=== PATIENT | female | born 1950 | race Caucasian/White ===

== ENCOUNTER 2016-10-29 15:56 | Observation (INO) | payer MEDICARE, BC ==
[2016-10-29] MEDS ORDERED: LORazepam 2 MG/ML MDV ONE (16:34)
--- NOTE | 2016-10-29 16:51 | EDM.PDOC ---
ED HPI GENERAL MEDICAL PROBLEM - General Chief Complaint: General Stated Complaint: CARDIAC ISSUES Time Seen by Provider: 10/29/16 16:00 Source of Information: Reports: Patient History Limitations: Reports: No limitations - History of Present Illness INITIAL COMMENTS - FREE TEXT/NARRATIVE: This is a 66yo F here for complaints of dizziness and lightheadedness with chest pressure. Patient states she feels as if she will pass out. Patient has had this in the past but months ago. Patient denies any recent stress or exacerbating factors. Daughter is present in ER. Onset: sudden Onset Date: 10/29/16 Onset Time: 14:30 Duration: Hour(s): Location: Reports: head, chest Severity: moderate Improves with: Reports: None Worsens with: Reports: None Associated Symptoms: Reports: headaches, weakness - Related Data Allergies Allergy/AdvReac Type Severity Reaction Status Date / Time codeine Allergy Nausea Verified 06/29/16 12:35 iodine Allergy Rash Verified 06/29/16 12:35 lisinopril Allergy Cough Verified 06/29/16 12:35 shellfish derived Allergy Rash Verified 06/29/16 12:35 Home Meds: Home Meds Levothyroxine [Synthroid] 100 mcg PO DAILY 09/04/13 [History] Losartan [Cozaar] 100 mg PO DAILY 09/04/13 [History] metFORMIN [Glucophage] 1,000 mg PO BID 09/04/13 [History] Aspirin 162 mg PO DAILY 10/24/15 [History] Cholecalciferol (Vitamin D3) [Vitamin D] 2,000 unit PO DAILY 10/24/15 [History] Cyanocobalamin (Vitamin B-12) [Vitamin B-12] 2,500 mcg SL DAILY 10/24/15 [ History] Hydrochlorothiazide 25 mg PO DAILY 10/24/15 [History] Insulin Aspart [NovoLOG] 10 unit SQ TID 10/24/15 [History] Insulin Glargine,Hum.Rec.Anlog [Lantus Solostar] 11 unit SQ BEDTIME 10/24/15 [ History] Past Medical History HEENT History: Reports: Other (see below) Other HEENT History: Wears glasses. 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: Neurological History: Reports: CVA, TIA Other Neuro History: CVA 2014 Endocrine/Metabolic History: Reports: Diabetes, type II - Infectious Disease History Infectious Disease History: Reports: Chicken pox, Measles, Mumps - Past Surgical History Cardiovascular Surgical History: Reports: None GI Surgical History: Reports: Appendectomy, Cholecystectomy Neurological Surgical History: Reports: None Social & Family History - Family History Family Medical History: Noncontributory - Tobacco Use Smoking Status *Q: Former Smoker Years of Tobacco use: 3 Packs/Tins Daily: 0.5 - Alcohol Use Days Per Week of Alcohol Use: 1 Number of Drinks Per Day: 1 Total Drinks Per Week: 1 - Recreational Drug Use Recreational Drug Use: No ED ROS GENERAL - Review of Systems Review Of Systems: ROS reveals no pertinent complaints other than HPI. ED EXAM, GENERAL - Physical Exam Exam: See Below Exam Limited By: No limitations General Appearance: alert, WD/WN, mild distress Eye Exam: bilateral eye: EOMI, normal inspection Ears: normal external exam Ear Exam: bilateral ear: auricle normal, canal normal, TM normal Nose: normal inspection Throat/Mouth: Normal inspection Head: atraumatic, normocephalic Neck: normal inspection, supple, non-tender Respiratory/Chest: no respiratory distress, lungs clear, normal breath sounds Cardiovascular: normal peripheral pulses, regular rate, rhythm Peripheral Pulses: 2+: dorsalis pedis (L), dorsalis pedis (R) GI/Abdominal: normal bowel sounds, soft, non tender Back Exam: normal inspection, full range of motion Extremities: normal inspection, normal range of motion Neurological: alert, oriented, CN II-XII intact Psychiatric: normal affect, normal mood Skin Exam: Warm, Dry, Intact Lymphatic: no adenopathy Course - Vital Signs Last Recorded V/S: Last Vital Signs Temp 36.0 C 10/29/16 15:56 Pulse 90 10/29/16 15:56 Resp 18 10/29/16 15:56 BP 214/99 H 10/29/16 15:56 Pulse Ox 100 10/29/16 15:56 - Orders/Labs/Meds Orders: Active Orders 24 hr Category Date Time Status Patient Status [ADT] Routine ADT 10/29/16 16:41 Ordered EKG Documentation Completion [RC] ASDIRECTED Care 10/29/16 16:05 Active Orthostatic Vital Signs [RC] ASDIRECTED Care 10/29/16 16:08 Active Oxygen Therapy [RC] PRN Care 10/29/16 16:41 Ordered Up ad Adriana [RC] ASDIRECTED Care 10/29/16 16:41 Ordered Vital Signs [RC] Q1HR Care 10/29/16 16:41 Ordered Nothing per Oral Now Diet [DIET] Diet 10/29/16 Breakfast Ordered TROPONIN I [CHEM] Timed Lab 10/29/16 20:30 Ordered Blood Pressure [OM.PC] INTERMITTENT Oth 10/29/16 16:07 Ordered Meds: Medications Discontinued Medications Generic Name Dose Route Start Last Admin Trade Name Akila PRN Reason Stop Dose Admin Lorazepam Confirm 10/29/16 16:34 Ativan Administered 10/29/16 16:35 Dose 2 mg .ROUTE .STK-MED ONE Departure - Departure Time of Disposition: 16:50 Disposition: Refer to Observation Condition: good Clinical Impression: Chest tightness or pressure Forms: ED Department Discharge - Problem List & Annotations (1) Dizziness SNOMED Code(s): 681355351, 338851254 Code(s): R42 - DIZZINESS AND GIDDINESS Status: Acute Priority: High Current Visit: Yes (2) Hypertensive urgency SNOMED Code(s): 160155897 Code(s): I16.0 - HYPERTENSIVE URGENCY Status: Suspected Priority: Medium Current Visit: Yes (3) Chest pressure SNOMED Code(s): 313593632 Code(s): R07.89 - OTHER CHEST PAIN Status: Acute Priority: High Current Visit: Yes (4) Vasovagal episode SNOMED Code(s): 882580351 Code(s): R55 - SYNCOPE AND COLLAPSE Status: Suspected Priority: High Current Visit: Yes - Problem List Review Problem List Initiated/Reviewed/Updated: Yes - My Orders Last 24 Hours: My Active Orders 10/29/16 16:05 EKG Documentation Completion [RC] ASDIRECTED 10/29/16 16:07 Blood Pressure [OM.PC] INTERMITTENT 10/29/16 16:08 Orthostatic Vital Signs [RC] ASDIRECTED 10/29/16 16:41 Patient Status [ADT] Routine Oxygen Therapy [RC] PRN Up ad Adriana [RC] ASDIRECTED Vital Signs [RC] Q1HR 10/29/16 20:30 TROPONIN I [CHEM] Timed 10/29/16 Breakfast Nothing per Oral Now Diet [DIET] - Assessment/Plan Last 24 Hours: My Active Orders 10/29/16 16:05 EKG Documentation Completion [RC] ASDIRECTED 10/29/16 16:07 Blood Pressure [OM.PC] INTERMITTENT 10/29/16 16:08 Orthostatic Vital Signs [RC] ASDIRECTED 10/29/16 16:41 Patient Status [ADT] Routine Oxygen Therapy [RC] PRN Up ad Adriana [RC] ASDIRECTED Vital Signs [RC] Q1HR 10/29/16 20:30 TROPONIN I [CHEM] Timed 10/29/16 Breakfast Nothing per Oral Now Diet [DIET] Plan: Patient to be placed in observation and repeat troponin done in 4 hours. Patient may be discharged for follow up in clinic in 3-4 days if troponins are negative.
[2016-10-29] MEDS ORDERED: Metoprolol Tartrate 5 MG/5 ML SDV IVPUSH ONE (18:38)
[2016-10-29] MEDS ORDERED: Omeprazole 40 MG Cap.CR PO ONE (21:14)
[2016-10-29] MEDS ORDERED: LORazepam 2 MG/ML MDV IVPUSH PRN (21:14)
[2016-10-29] MEDS ORDERED: Acetaminophen 325 MG Tab PO PRN (21:18)
--- NOTE | 2016-10-30 09:21 | PCM.DCSUM1 ---
Discharge Summary - Discharge Data Discharge Date: 10/30/16 Discharge Disposition: Home, Self-Care 01 Condition: Good - Discharge Diagnosis/Problem(s) (1) Dizziness SNOMED Code(s): 774611586, 446940665 ICD Code: R42 - DIZZINESS AND GIDDINESS Status: Acute Priority: High Current Visit: Yes (2) Hypertensive urgency SNOMED Code(s): 573400726 ICD Code: I16.0 - HYPERTENSIVE URGENCY Status: Suspected Priority: Medium Current Visit: Yes (3) Chest pressure SNOMED Code(s): 934573831 ICD Code: R07.89 - OTHER CHEST PAIN Status: Acute Priority: High Current Visit: Yes (4) Vasovagal episode SNOMED Code(s): 491075835 ICD Code: R55 - SYNCOPE AND COLLAPSE Status: Suspected Priority: High Current Visit: Yes - Patient Instructions Diet: Heart Healthy Diet Activity: As Tolerated Driving: Do Not Drive - Discharge Plan Home Medications: Home Meds Levothyroxine [Synthroid] 100 mcg PO DAILY 09/04/13 [History] Losartan [Cozaar] 100 mg PO DAILY 09/04/13 [History] metFORMIN [Glucophage] 1,000 mg PO BID 09/04/13 [History] Aspirin 162 mg PO DAILY 10/24/15 [History] Cholecalciferol (Vitamin D3) [Vitamin D] 2,000 unit PO DAILY 10/24/15 [History] Cyanocobalamin (Vitamin B-12) [Vitamin B-12] 2,500 mcg SL DAILY 10/24/15 [ History] Hydrochlorothiazide 25 mg PO DAILY 10/24/15 [History] Insulin Aspart [NovoLOG] 10 unit SQ TID 10/24/15 [History] Insulin Glargine,Hum.Rec.Anlog [Lantus Solostar] 11 unit SQ BEDTIME 10/24/15 [ History] Forms: ED Department Discharge - Discharge Summary/Plan Comment DC Time >30 min.: Yes Discharge Summary/Plan Comment: Counseled on medication adjustment and changes. Patient will continue with alprazolam use as directed with an occasional tablet during the day if she has symptoms of anxiety or stress. We will change losartan from 100mg daily to 50mg BID. Patient to continue with BP monitoring at home and in clinic. Patient to f/ u in clinic as directed for recheck. Patient agrees with plan and plan discussed with daughter as well. There are no other medication changes required at this time as we will assess the recent changes in clinic. - Patient Data Vitals - Most Recent: Last Vital Signs Temp 36.6 C 10/29/16 23:49 Pulse 65 10/29/16 23:49 Resp 16 10/29/16 23:49 BP 116/59 L 10/29/16 23:49 Pulse Ox 95 10/29/16 23:49 Weight - Most Recent: 66.224 kg I&O - Last 24 hours: Intake & Output 10/29/16 10/30/16 10/30/16 22:59 06:59 14:59 Intake Total 200 Balance 200 Lab Results - Last 24 hrs: Laboratory Results - last 24 hr 10/29/16 10/29/16 10/30/16 Range/Units 19:22 20:30 07:15 POC Glucose 96 (74-110) mg/dL Troponin I 0.040 D 0.028 D (0.000-0.060) ng/mL Med Orders - Current: Current Medications Acetaminophen (Tylenol) 650 mg PO Q6H PRN PRN Reason: Headache Last Admin: 10/29/16 21:46 Dose: 650 mg Lorazepam (Ativan) 0.5 mg IVPUSH Q4H PRN PRN Reason: Anxiety Last Admin: 10/29/16 21:48 Dose: 0.5 mg Discontinued Medications Lorazepam (Ativan) Confirm Administered Dose 2 mg .ROUTE .STK-MED ONE Stop: 10/29/16 16:35 Metoprolol Tartrate (Lopressor) 5 mg IVPUSH ONETIME ONE Stop: 10/29/16 18:39 Last Admin: 10/29/16 19:04 Dose: 5 mg Omeprazole (Omeprazole) 40 mg PO ONETIME ONE Stop: 10/29/16 21:15 Last Admin: 10/29/16 22:07 Dose: 40 mg *Q Meaningful Use (DIS) - VTE *Q VTE Criteria *Q: - Stroke *Q Stroke Criteria *Q: - AMI *Q AMI Criteria *Q:
[2016-10-30 10:14] VITALS: BP 147/91
== END 2016-10-30 09:50 | disposition home or self-care (01) ==
LOC: LB.ED 15:56 → LB.MS 16:41
PROVIDERS: ADMIT Family Medicine; ATTEND Family Medicine
DX: R42 Dizziness and giddiness (principal); I16.0 Hypertensive urgency; R07.89 Other chest pain; R55 Syncope and collapse; Z79.82 Long term (current) use of aspirin; Z79.899 Other long term (current) drug therapy; Z79.4 Long term (current) use of insulin; Z88.5 Allergy status to narcotic agent; Z88.8 Allergy status to other drugs, medicaments and biological substances; I10 Essential (primary) hypertension; E11.9 Type 2 diabetes mellitus without complications; Z90.49 Acquired absence of other specified parts of digestive tract; Z87.891 Personal history of nicotine dependence; E78.00 Pure hypercholesterolemia, unspecified; E03.9 Hypothyroidism, unspecified
CPT/HCPCS: 36415; 80053; 80061; 82962; 83036; 84443; 84484; 85025; 93005; 96374; 96375; 99217; 99219; 99285; A9270; G0378; J2060; J3490

== ENCOUNTER 2017-03-13 20:34 | Emergency (ER) | payer MEDICARE, BC ==
[2017-03-13] MEDS ORDERED: Adenosine 12 MG/4 ML SDV IVPUSH ONE (20:50)
[2017-03-13] MEDS ORDERED: Diltiazem 50 MG/10 ML SDV IVPUSH ONE (21:05)
--- NOTE | 2017-03-14 01:17 | ER ---
HISTORY OF PRESENT ILLNESS: A 66-year-old lady here who comes in with family members and a friend with complaints of not feeling well. She feels her heartbeat is fast. She has been nauseated, and she did vomit once at home. Her symptoms started late this afternoon. She has had similar symptoms the last 3 or 4 afternoons and it always seems to be in the afternoon. They have been checking her blood pressure at home, and her readings have been high but then it comes down. The patient does have history of tachycardia and PSVT. It is unsure if her medications are being taken accurately. A family friend who is here and is also a pharmacist is concerned that she may be taking her metoprolol only once a day instead of twice a day. This is being looked into. The patient denies any chest pain. She just tells me she does not feel well. OBJECTIVE: GENERAL APPEARANCE: The patient is awake and alert. She is lying on the exam table. No respiratory distress. VITAL SIGNS: Vital signs are reviewed. Initial blood pressure is 198/108. CARDIAC: Heart sounds are distinct and rapid. Ventricular rate is in the 150s. SKIN: Warm and dry. LUNGS: Clear. HEENT: Oral mucous membranes are moist. Tonsils not enlarged or injected. Pharynx not inflamed. ABDOMEN: Soft and nontender. Bowel sounds are present. DIAGNOSES: Paroxysmal supraventricular tachycardia with hypertension. TREATMENT PLAN: Valsalva's maneuver and coughing were first attempted without success. We then gave the patient adenosine 6 mg IV. This did convert the patient to a normal sinus rhythm with a pulse rate in the upper 80s. She stated she felt better within about a minute after giving the adenosine and the initial effects of the adenosine wore off. The patient was monitored closely for about 20 more minutes. She had one episode where her pulse started to increase again, and she coughed which reverted it back to normal sinus rhythm once again. At this point, Cardizem 20 mg was given IV and this brought her pulse rate down into the 60s and 70s, and her blood pressure dropped down nicely as well with readings in the 130s to 140s over 70s. The patient is tired but otherwise states that she feels fine. At this point, she will be discharged home with family members. They are going to give her dose of metoprolol 25 mg this evening when she gets home, and tomorrow they are going to call the clinic and come back in for recheck with the primary care provider Dr. Motley. The patient has no further questions and when she is leaving the ER she states that she feels much better. LAUREEN/HEIDY /[id number]
[2017-03-14] MEDS ORDERED: NS + KCl 20mEq/L 1,000 ML IV SCH (03:00)
[2017-03-14 03:08] VITALS: BP 136/76
[2017-03-14] MEDS ORDERED: LEVOTHYROXINE 100 MCG PO SCH (08:00)
[2017-03-14] MEDS ORDERED: Non-Formulary Medication 1 Each (Metformin [Glucophage] 1,000 MG) PO SCH (08:00)
[2017-03-14] MEDS ORDERED: Non-Formulary Medication 1 Each (Hydrochlorothiazide [Hydrochlorothiazide] 25 MG) PO SCH (08:00)
[2017-03-14] MEDS ORDERED: Non-Formulary Medication 1 Each (Losartan [Cozaar] 100 MG) PO SCH (08:00)
[2017-03-14] MEDS ORDERED: [UNRECOGNIZED DRUG - OTHER] SL SCH (08:00)
[2017-03-14] MEDS ORDERED: Aspirin 81 MG Tab.Chew PO SCH (08:00)
[2017-03-14] MEDS ORDERED: Non-Formulary Medication 1 Each (Insulin Aspart [Novolog] 10 UNIT) SQ SCH (08:00)
[2017-03-14] MEDS ORDERED: Non-Formulary Medication 1 Each (Cholecalciferol (Vitamin D3) [Vitamin D3] 2,000 UNIT) PO SCH (08:00)
[2017-03-14] MEDS ORDERED: CYANOCOBALAMIN 2500 MCG SL SCH (08:00)
[2017-03-14] MEDS ORDERED: INSULIN GLARGINE SQ SCH (20:00)
[2017-03-14] MEDS ORDERED: [UNRECOGNIZED DRUG - OTHER] SQ SCH (20:00)
== END 2017-03-13 23:40 | disposition home or self-care (01) ==
LOC: LB.ED 20:34
DX: I47.1 Supraventricular tachycardia (principal); I10 Essential (primary) hypertension
CPT/HCPCS: 93005; 96374; 96375; 99284; A9270; J0153

== ENCOUNTER 2017-03-14 01:54 | Observation (INO) | payer MEDICARE, BC ==
[2017-03-14] MEDS ORDERED: Sodium Chloride 0.9% 10 ML Syringe FLUSH PRN (02:00)
[2017-03-14] MEDS ORDERED: NS + KCl 20mEq/L 1,000 ML IV SCH (03:00)
[2017-03-14] MEDS ORDERED: NS + KCl 20mEq/L 1,000 ML ONE ×2 (03:12→20:56)
[2017-03-14] MEDS ORDERED: Promethazine 25 MG in Sodium Chloride 0.9% 50 ML IV ONE (03:30)
[2017-03-14] MEDS ORDERED: Promethazine 25 MG/ML SDV ONE (03:41)
--- NOTE | 2017-03-14 03:41 | ADMIT ---
This 66-year-old lady was seen in the emergency room last evening for SVT. She converted with adenosine to a NSR. She was also given Cardizem. The patient was discharged home only to return a couple hours later with complaints of nausea, weakness, and muscle aches. She had, what she tells, a charley horse in her leg and when she was walking around she became lightheaded. The patient was evaluated once again. She was in normal sinus rhythm with a pulse rate in the 60s when she came back. We got her initial blood pressure in the 170s/70s that started to come down once the patient was put into a bed. Lab work revealed a low potassium level of 2.5 and a chloride level of 87. The patient was admitted for observation on telemetry. We started normal saline with 20 mEq of potassium. The patient is not nauseated at this time. If nausea becomes an issue, we will give her some Phenergan. The remaining labs are unremarkable. The patient is resting quietly at 3:15 a.m. LAUREEN/HEIDY /[id number] MTDD
[2017-03-14] MEDS: NS + KCl 20mEq/L 1,000 ML IV SCH ×2 (10:10→13:27)
--- NOTE | 2017-03-14 10:42 | PCM.PN ---
- General Info Date of Service: 03/14/17 Subjective Update: This is a 66yo F who arrived in the ER last night with palpitations, nausea/ vomiting, and a syncopal episode. Patient's symptoms started on Fri when she felt nauseated, health palpitations, lightheadedness and was vomiting. She has had prior cardia Functional Status: Reports: tolerating diet - Review of Systems General: Reports: Appetite (decreased) Pulmonary: Reports: no symptoms Cardiovascular: Reports: Palpitations Gastrointestinal: Reports: No symptoms Genitourinary: Reports: no symptoms Musculoskeletal: Reports: no symptoms Skin: Reports: no symptoms Neurological: Reports: No Symptoms Psychiatric: Reports: anxiety - Patient Data Vitals - most recent: Last Vital Signs Temp 36.6 C 03/14/17 08:00 Pulse 56 L 03/14/17 10:00 Resp 20 03/14/17 10:00 BP 149/73 H 03/14/17 10:00 Pulse Ox 98 03/14/17 10:00 Weight - most recent: 66.224 kg I&O - last 24 hours: Intake & Output 03/13/17 03/14/17 03/14/17 22:59 06:59 14:59 Intake Total 275 Output Total 0 Balance 275 Lab Results last 24 hrs: Laboratory Results - last 24 hr 03/14/17 03/14/17 03/14/17 Range/Units 02:24 02:24 02:24 WBC 9.4 (4.0-11.0) K/uL RBC 4.68 (3.80-5.80) M/uL Hgb 14.8 (11.5-16.5) g/dL Hct 40.7 (37.0-47.0) % MCV 87 (76-96) fL MCH 31.6 (27.0-32.0) pg MCHC 36.4 H (31.0-35.0) g/dL RDW 12.7 (11.0-16.0) % Plt Count 213 (150-500) K/uL MPV 10.2 H (6.0-10.0) fL Neut % (Auto) 63.5 (45.0-70.0) % Lymph % (Auto) 25.3 (20.0-40.0) % [place] % (Auto) 10.3 H (3.0-10.0) % Eos % (Auto) 0.6 L (1.0-5.0) % Baso % (Auto) 0.3 (0.0-0.5) % Neut # (Auto) 5.98 (2.00-7.50) K/uL Lymph # (Auto) 2.39 (1.50-4.00) K/uL [place] # (Auto) 0.97 H (0.20-0.80) K/uL Eos # (Auto) 0.06 (0.04-0.40) K/uL Baso # (Auto) 0.03 (0.02-0.10) K/uL Sodium 127 L (136-145) mmol/L Potassium 2.5 L* D (3.5-5.1) mmol/L Chloride 87 L* (98-107) mmol/L Carbon Dioxide 29.4 (21.0-32.0) mmol/L Anion Gap 13.1 (5.0-15.0) mmol/L BUN 16 (8-26) mg/dL Creatinine 0.88 (0.55-1.02) mg/dL Est Cr Clr Drug Dosing TNP Estimated GFR (MDRD) > 60 (>60) MLS/MIN BUN/Creatinine Ratio 18.2 (6-25) Glucose 176 H (74-100) mg/dL Calcium 9.2 (8.5-10.1) mg/dL Total Bilirubin 0.5 (0.0-1.0) mg/dL AST 28 (15-37) U/L ALT 36 (12-78) U/L Alkaline Phosphatase 66 (46-116) U/L Troponin I 0.018 D (0.000-0.060) ng/mL Total Protein 7.4 (6.4-8.2) g/dL Albumin 3.5 (3.4-5.0) g/dL Globulin 3.9 (2.2-4.2) g/dL Albumin/Globulin Ratio 0.9 (0.8-2.0) 03/14/17 03/14/17 Range/Units 09:00 09:00 WBC (4.0-11.0) K/uL RBC (3.80-5.80) M/uL Hgb (11.5-16.5) g/dL Hct (37.0-47.0) % MCV (76-96) fL MCH (27.0-32.0) pg MCHC (31.0-35.0) g/dL RDW (11.0-16.0) % Plt Count (150-500) K/uL MPV (6.0-10.0) fL Neut % (Auto) (45.0-70.0) % Lymph % (Auto) (20.0-40.0) % [place] % (Auto) (3.0-10.0) % Eos % (Auto) (1.0-5.0) % Baso % (Auto) (0.0-0.5) % Neut # (Auto) (2.00-7.50) K/uL Lymph # (Auto) (1.50-4.00) K/uL [place] # (Auto) (0.20-0.80) K/uL Eos # (Auto) (0.04-0.40) K/uL Baso # (Auto) (0.02-0.10) K/uL Sodium 125 L (136-145) mmol/L Potassium 3.1 L D (3.5-5.1) mmol/L Chloride 87 L* (98-107) mmol/L Carbon Dioxide 28.7 (21.0-32.0) mmol/L Anion Gap 12.4 (5.0-15.0) mmol/L BUN 15 (8-26) mg/dL Creatinine 0.81 (0.55-1.02) mg/dL Est Cr Clr Drug Dosing 55.75 Estimated GFR (MDRD) > 60 (>60) MLS/MIN BUN/Creatinine Ratio 18.5 (6-25) Glucose 239 H D (74-100) mg/dL Calcium 8.6 (8.5-10.1) mg/dL Total Bilirubin (0.0-1.0) mg/dL AST (15-37) U/L ALT (12-78) U/L Alkaline Phosphatase (46-116) U/L Troponin I 0.018 (0.000-0.060) ng/mL Total Protein (6.4-8.2) g/dL Albumin (3.4-5.0) g/dL Globulin (2.2-4.2) g/dL Albumin/Globulin Ratio (0.8-2.0) Med Orders - Current: Current Medications Potassium Chloride/Sodium Chloride (Normal Saline With 20 Meq Kcl) 1,000 mls @ 75 mls/hr IV ASDIRECTED KAELYN Last Admin: 03/14/17 03:30 Dose: 75 mls/hr Sodium Chloride (Saline Flush) 10 ml FLUSH ASDIRECTED PRN PRN Reason: Keep Vein Open Discontinued Medications Potassium Chloride/Sodium Chloride (Normal Saline With 20 Meq Kcl) Confirm Administered Dose 1,000 mls @ as directed .ROUTE .STK-MED ONE Stop: 03/14/17 03:13 Last Admin: 03/14/17 03:31 Dose: Not Given Promethazine HCl 25 mg/ Sodium (Chloride) 51 mls @ 200 mls/hr IV ONETIME ONE Stop: 03/14/17 03:45 Last Admin: 03/14/17 04:15 Dose: 200 mls/hr Promethazine HCl (Phenergan) Confirm Administered Dose 25 mg .ROUTE .STK-MED ONE Stop: 03/14/17 03:42 Last Admin: 03/14/17 04:31 Dose: Not Given - Exam General: alert, oriented, cooperative HEENT: Pupils equal, Pupils reactive, EOMI, Mucous membr. moist/pink Lungs: Clear to auscultation, Normal respiratory effort Cardiovascular: Regular Rate, Regular Rhythm Abdomen: bowel sounds present Back Exam: Normal Inspection Extremities: no edema Peripheral Pulses: 2+: Dorsalis Pedis (L), Dorsalis Pedis (R) Skin: warm, dry, intact Neurological: no new focal deficit Psy/Mental Status: alert, normal affect, normal mood - Problem List Review Problem List Initiated/Reviewed/Updated: Yes - My Orders Last 24 Hours: My Active Orders 03/14/17 08:58 EKG Documentation Completion [RC] ASDIRECTED - Plan Plan:: Patient will be monitored overnight. We will continue to replace Na, K+, and Mg deficiencies. Patient to be placed on a holter monitor and continue telemetry for palpitations. F/u Labs in AM.
[2017-03-14] MEDS: Ondansetron 4 MG/2 ML SDV IVPUSH SCH ×2 (11:26→17:23)
[2017-03-14] MEDS: ClonazePAM 0.5 MG Tab PO SCH ×2 (11:26→20:02)
[2017-03-14] MEDS ORDERED: Insulin Aspart 100 Units/ML 3 ML Pen SUBCUT SCH (14:00)
[2017-03-14] MEDS ORDERED: KCL IV SCH (16:54)
[2017-03-14] MEDS ORDERED: NS IV SCH (16:54)
[2017-03-14] MEDS ORDERED: MAGNESIUM SULFATE IV SCH (16:54)
[2017-03-14] MEDS: DIFLUNISAL 500 MG PO SCH (17:31)
[2017-03-14] MEDS: metFORMIN 1,000 MG Tab PO SCH (19:59)
[2017-03-14] MEDS ORDERED: Pravastatin 20 MG Tab PO SCH (20:00)
[2017-03-14] MEDS ORDERED: Insulin Glargine,Human Rec. Analog 100 Units/ML 3 ML Pen SUBCUT SCH (20:00)
[2017-03-14] MEDS: Metoprolol Tartrate 25 MG Tab PO SCH (20:02)
[2017-03-15] MEDS: Ondansetron 4 MG/2 ML SDV IVPUSH SCH ×2 (03:51→09:34)
[2017-03-15] MEDS ORDERED: NS + KCl 20mEq/L 1,000 ML ONE (05:04)
[2017-03-15] MEDS: NS + KCl 20mEq/L 1,000 ML IV SCH (05:08)
[2017-03-15] MEDS ORDERED: Aspirin 81 MG Tab.EC PO SCH (08:00)
[2017-03-15] MEDS ORDERED: Insulin Aspart 100 Units/ML 3 ML Pen SUBCUT SCH ×2 (08:00→09:00)
[2017-03-15] MEDS ORDERED: Levothyroxine 88 MCG Tab PO SCH (08:00)
[2017-03-15] MEDS ORDERED: Hydrochlorothiazide 25 MG Tab PO SCH (08:00)
[2017-03-15] MEDS ORDERED: Omeprazole 40 MG Cap.CR PO SCH (08:00)
[2017-03-15] MEDS ORDERED: Losartan 50 MG Tab PO SCH (08:00)
[2017-03-15] MEDS: DIFLUNISAL 500 MG PO SCH (08:42)
[2017-03-15] MEDS: Metoprolol Tartrate 25 MG Tab PO SCH (08:45)
[2017-03-15] MEDS: metFORMIN 1,000 MG Tab PO SCH (08:45)
[2017-03-15] MEDS: ClonazePAM 0.5 MG Tab PO SCH (09:01)
[2017-03-15] MEDS ORDERED: ClonazePAM 0.5 MG Tab ONE ×2 (10:37→11:00)
--- NOTE | 2017-03-15 10:52 | PCM.DCSUM1 ---
Discharge Summary - Discharge Data Discharge Date: 03/15/17 Discharge Disposition: Home, Self-Care 01 Condition: Good - Patient Instructions Diet: Heart Healthy Diet, Usual Diet as Tolerated Activity: As Tolerated Driving: Do Not Drive Notify Provider of: Nausea and/or Vomiting - Discharge Plan Home Medications: Home Meds Levothyroxine [Synthroid] 100 mcg PO DAILY 09/04/13 [History] Losartan [Cozaar] 100 mg PO DAILY 09/04/13 [History] metFORMIN [Glucophage] 1,000 mg PO BID 09/04/13 [History] Aspirin 162 mg PO DAILY 10/24/15 [History] Cholecalciferol (Vitamin D3) [Vitamin D] 2,000 unit PO DAILY 10/24/15 [History] Cyanocobalamin (Vitamin B-12) [Vitamin B-12] 2,500 mcg SL DAILY 10/24/15 [ History] Hydrochlorothiazide 25 mg PO DAILY 10/24/15 [History] Insulin Aspart [NovoLOG] 10 unit SQ TID 10/24/15 [History] Insulin Glargine,Hum.Rec.Anlog [Lantus Solostar] 11 unit SQ BEDTIME 10/24/15 [ History] - Discharge Summary/Plan Comment DC Time >30 min.: Yes Discharge Summary/Plan Comment: Counseled on medication changes and labs. Discussed follow up in clinic in 1-2 wks for lab recheck and sooner as needed if any symptoms return. Continue with Holter and f/u results. HCTZ changed back to 25mg daily. Metoprolol increased to 37.5mg BID. Clonazepam started at 0.5mg BID in conjuction with alprazolam 0.25mg prn qhs. Counseled on BP monitoring and follow up if poorly controlled for adjustment and management. - Patient Data Vitals - Most Recent: Last Vital Signs Temp 36.6 C 03/14/17 14:00 Pulse 60 03/15/17 08:45 Resp 14 03/15/17 07:00 BP 182/75 H 03/15/17 08:54 Pulse Ox 98 03/15/17 07:00 Weight - Most Recent: 66.224 kg I&O - Last 24 hours: Intake & Output 03/14/17 03/15/17 03/15/17 22:59 06:59 14:59 Intake Total 928 2220 Balance 928 2220 Lab Results - Last 24 hrs: Laboratory Results - last 24 hr 03/14/17 03/15/17 03/15/17 Range/Units 09:00 07:39 09:00 Sodium 137 (136-145) mmol/L Potassium 3.7 (3.5-5.1) mmol/L Chloride 103 (98-107) mmol/L Carbon Dioxide 28.8 (21.0-32.0) mmol/L Anion Gap 8.9 (5.0-15.0) mmol/L BUN 9 D (8-26) mg/dL Creatinine 0.83 (0.55-1.02) mg/dL Est Cr Clr Drug Dosing 54.41 mL/min Estimated GFR (MDRD) > 60 (>60) MLS/MIN BUN/Creatinine Ratio 10.8 (6-25) Glucose 105 H D (74-100) mg/dL POC Glucose 100 (74-110) mg/dL Calcium 8.2 L (8.5-10.1) mg/dL Magnesium 1.4 L 2.0 D (1.8-2.4) mg/dL Med Orders - Current: Current Medications Aspirin (Halfprin) 324 mg PO DAILY [facility] Last Admin: 03/15/17 08:45 Dose: 324 mg Clonazepam (Klonopin) 0.5 mg PO BID [facility] Last Admin: 03/15/17 09:01 Dose: 0.5 mg Hydrochlorothiazide (Hydrochlorothiazide) 25 mg PO DAILY [facility] Magnesium Sulfate 3 gm/Potassium Chloride/Sodium Chloride 1,006 mls @ 125 mls/ hr IV ASDIRECTED [facility] Last Admin: 03/14/17 21:10 Dose: 125 mls/hr Insulin Aspart (Novolog) 10 unit SUBCUT TID@0800,1200,1800 [facility] Insulin Glargine (Lantus Solostar) 11 units SUBCUT BEDTIME [facility] Last Admin: 03/14/17 20:04 Dose: 11 units Levothyroxine Sodium (Synthroid) 88 mcg PO DAILY [facility] Last Admin: 03/15/17 07:08 Dose: 88 mcg Losartan Potassium (Cozaar) 50 mg PO DAILY [facility] Last Admin: 03/15/17 08:54 Dose: 50 mg Metformin HCl (Glucophage) 1,000 mg PO BID [facility] Last Admin: 03/15/17 08:45 Dose: 1,000 mg Metoprolol Tartrate (Lopressor) 37.5 mg PO BID [facility] Last Admin: 03/15/17 08:45 Dose: 37.5 mg Diflunisal 500mg (Tablet) 1 each PO BIDMEALS [facility] Last Admin: 03/15/17 08:42 Dose: 1 each Omeprazole (Omeprazole) 40 mg PO DAILY [facility] Last Admin: 03/15/17 07:08 Dose: 40 mg Ondansetron HCl (Zofran) 4 mg IVPUSH Q6H [facility] Last Admin: 03/15/17 09:34 Dose: Not Given Pravastatin Sodium (Pravachol) 20 mg PO BEDTIME [facility] Last Admin: 03/14/17 20:00 Dose: 20 mg Sodium Chloride (Saline Flush) 10 ml FLUSH ASDIRECTED PRN PRN Reason: Keep Vein Open Discontinued Medications Clonazepam (Klonopin) Confirm Administered Dose 2.5 mg .ROUTE .STK-MED ONE Stop: 03/15/17 10:38 Potassium Chloride/Sodium Chloride (Normal Saline With 20 Meq Kcl) Confirm Administered Dose 1,000 mls @ as directed .ROUTE .STK-MED ONE Stop: 03/14/17 03:13 Last Admin: 03/14/17 03:31 Dose: Not Given Promethazine HCl 25 mg/ Sodium (Chloride) 51 mls @ 200 mls/hr IV ONETIME ONE Stop: 03/14/17 03:45 Last Admin: 03/14/17 04:15 Dose: 200 mls/hr Potassium Chloride/Sodium Chloride (Normal Saline With 20 Meq Kcl) 1,000 mls @ 75 mls/hr IV ASDIRECTED [facility] Last Infusion: 03/14/17 10:10 Dose: 125 mls/hr Potassium Chloride/Sodium Chloride (Normal Saline With 20 Meq Kcl) 1,000 mls @ 125 mls/hr IV ASDIRECTED [facility] Last Admin: 03/15/17 05:08 Dose: 125 mls/hr Potassium Chloride/Sodium Chloride (Normal Saline With 20 Meq Kcl) Confirm Administered Dose 1,000 mls @ as directed .ROUTE .STK-MED ONE Stop: 03/14/17 20:57 Last Admin: 03/14/17 22:21 Dose: Not Given Potassium Chloride/Sodium Chloride (Normal Saline With 20 Meq Kcl) Confirm Administered Dose 1,000 mls @ as directed .ROUTE .STK-MED ONE Stop: 03/15/17 05:05 Last Admin: 03/15/17 05:09 Dose: Not Given Insulin Aspart (Novolog) 10 unit SUBCUT TID [facility] Last Admin: 03/14/17 13:51 Dose: 10 units Insulin Aspart (Novolog) 10 unit SUBCUT TID@,12,17 [facility] Promethazine HCl (Phenergan) Confirm Administered Dose 25 mg .ROUTE .STK-MED ONE Stop: 03/14/17 03:42 Last Admin: 03/14/17 04:31 Dose: Not Given *Q Meaningful Use (DIS) - VTE *Q VTE Criteria *Q: - Stroke *Q Stroke Criteria *Q: - AMI *Q AMI Criteria *Q:
[2017-03-15 11:14] VITALS: BP 165/67
== END 2017-03-15 11:30 | disposition home or self-care (01) ==
LOC: UNDOADMOB 01:54 → LB.MS 01:54
PROVIDERS: ADMIT Physician Assistant; ATTEND Physician Assistant
DX: I47.1 Supraventricular tachycardia (principal); I10 Essential (primary) hypertension; Z79.82 Long term (current) use of aspirin; Z79.4 Long term (current) use of insulin; Z79.899 Other long term (current) drug therapy
CPT/HCPCS: 0296T; 0297T; 36415; 80048; 80053; 82962; 83735; 84484; 85025; 93005; A9270; J2405; J2550; J3475; J3480; J7050; 96365; 96366; 96367; 96375; 96376; 99217; 99220; G0378; G0379

== ENCOUNTER 2017-03-24 08:02 | Inpatient (IN) | payer MEDICARE, BC ==
[2017-03-24] MEDS ORDERED: Sodium Chloride 0.9% 10 ML Syringe FLUSH PRN (08:24)
[2017-03-24] MEDS ORDERED: Flumazenil 0.1 MG/ML 5 ML MDV IVPUSH PRN ×2 (08:25→08:54)
[2017-03-24] MEDS ORDERED: Sodium Chloride 0.9% 500 ML IV ONE (08:57)
[2017-03-24] MEDS: Sodium Chloride 0.9% with KCl 1,000 ML IV SCH ×3 (09:33→21:27)
--- NOTE | 2017-03-24 10:03 | EDM.PDOC ---
ED HPI GENERAL MEDICAL PROBLEM - General Chief Complaint: Syncope Stated Complaint: UNKNOWN Time Seen by Provider: 03/24/17 08:15 - History of Present Illness INITIAL COMMENTS - FREE TEXT/NARRATIVE: This is a 66yo F who had an episode of syncope and hit her head yesterday. She then felt lightheaded and very unwell today. Patient's daughter is present and states she took her mom to her house yesterday and she appears to be worse today and not very responsive. Patient denies any chest pain but appears groggy. Onset: Gradual Duration: Day(s): Location: Reports: Generalized Severity: Moderate Improves with: Reports: None Worsens with: Reports: None - Related Data Allergies Allergy/AdvReac Type Severity Reaction Status Date / Time codeine Allergy Nausea Verified 03/24/17 10:24 iodine Allergy Rash Verified 03/24/17 10:24 lisinopril Allergy Cough Verified 03/24/17 10:24 shellfish derived Allergy Rash Verified 03/24/17 10:24 Home Meds: Home Meds Cyanocobalamin (Vitamin B-12) [Vitamin B-12] 2,500 mcg SL DAILY 10/24/15 [ History] Levothyroxine [Synthroid] 88 mcg PO DAILY tablet 03/15/17 [Rx] Losartan [Cozaar] 50 mg PO DAILY tablet 03/15/17 [Rx] Omeprazole 40 mg PO DAILY cap.cr 03/15/17 [Rx] Pravastatin [Pravachol] 20 mg PO BEDTIME tablet 03/15/17 [Rx] metFORMIN [Glucophage] 1,000 mg PO BID tablet 03/15/17 [Rx] Cyanocobalamin (Vitamin B12) [Vitamin B12] 2,500 mcg PO DAILY tablet 03/26/17 [ Rx] Insulin Aspart [NovoLOG] 3 unit SUBCUT TIDMEALS #1 pen 03/26/17 [Rx] Insulin Glargine,Hum.Rec.Anlog [Lantus Solostar] 9 unit SQ BEDTIME #0 03/26/17 [Rx] amLODIPine [Norvasc] 5 mg PO DAILY #60 tablet 03/26/17 [Rx] Past Medical History HEENT History: Reports: Other (See Below) Other HEENT History: Wears glasses. 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: Neurological History: Reports: CVA, TIA Other Neuro History: CVA 2014 Endocrine/Metabolic History: Reports: Diabetes, Type II - Infectious Disease History Infectious Disease History: Reports: Chicken Pox, Measles, Mumps - Past Surgical History Cardiovascular Surgical History: Reports: None GI Surgical History: Reports: Appendectomy, Cholecystectomy Neurological Surgical History: Reports: None Social & Family History - Family History Family Medical History: Noncontributory - Tobacco Use Smoking Status *Q: Never Smoker Years of Tobacco use: 3 Packs/Tins Daily: 0.5 Second Hand Smoke Exposure: No - Caffeine Use Caffeine Use: Reports: None Other Caffeine Use: unknown - Alcohol Use Days Per Week of Alcohol Use: 0 Number of Drinks Per Day: 1 Total Drinks Per Week: 0 - Recreational Drug Use Recreational Drug Use: No ED ROS GENERAL - Review of Systems Review Of Systems: ROS reveals no pertinent complaints other than HPI. ED EXAM, GENERAL - Physical Exam Exam: See Below General Appearance: Obtunded, Mild Distress Eye Exam: Bilateral Eye: EOMI, PERRL Ears: Normal External Exam Nose: Normal Inspection Throat/Mouth: Normal Inspection Head: Atraumatic, Normocephalic Neck: Normal Inspection Respiratory/Chest: No Respiratory Distress, Lungs Clear, Normal Breath Sounds Cardiovascular: Normal Peripheral Pulses, Bradycardia Peripheral Pulses: 2+: Dorsalis Pedis (L), Dorsalis Pedis (R) GI/Abdominal: Normal Bowel Sounds Extremities: Normal Inspection Neurological: Alert, CN II-XII Intact, Disoriented, Slow to Respond Course - Vital Signs Last Recorded V/S: Last Vital Signs Temp 36.7 C 03/26/17 12:57 Pulse 73 03/26/17 12:57 Resp 16 03/25/17 20:00 BP 165/83 H 03/26/17 12:57 Pulse Ox 95 03/26/17 12:57 - Orders/Labs/Meds Labs: Laboratory Tests 03/24/17 03/24/17 03/24/17 Range/Units 08:22 08:40 09:02 WBC 5.8 D (4.0-11.0) K/uL RBC 4.34 (3.80-5.80) M/uL Hgb 13.7 (11.5-16.5) g/dL Hct 37.5 (37.0-47.0) % MCV 86 (76-96) fL MCH 31.6 (27.0-32.0) pg MCHC 36.5 H (31.0-35.0) g/dL RDW 12.5 (11.0-16.0) % Plt Count 197 (150-500) K/uL MPV 10.1 H (6.0-10.0) fL Neut % (Auto) 58.5 (45.0-70.0) % Lymph % (Auto) 26.4 (20.0-40.0) % Carver % (Auto) 13.4 H (3.0-10.0) % Eos % (Auto) 1.5 (1.0-5.0) % Baso % (Auto) 0.2 (0.0-0.5) % Neut # (Auto) 3.41 (2.00-7.50) K/uL Lymph # (Auto) 1.54 (1.50-4.00) K/uL Carver # (Auto) 0.78 (0.20-0.80) K/uL Eos # (Auto) 0.09 (0.04-0.40) K/uL Baso # (Auto) 0.01 L (0.02-0.10) K/uL Sodium 128 L (136-145) mmol/L Potassium 3.2 L (3.5-5.1) mmol/L Chloride 91 L (98-107) mmol/L Carbon Dioxide 32.3 H (21.0-32.0) mmol/L Anion Gap 7.9 (5.0-15.0) mmol/L BUN 13 D (8-26) mg/dL Creatinine 0.76 (0.55-1.02) mg/dL Est Cr Clr Drug Dosing 59.42 mL/min Estimated GFR (MDRD) > 60 (>60) MLS/MIN BUN/Creatinine Ratio 17.1 (6-25) Glucose 103 H (74-100) mg/dL Calcium 8.6 (8.5-10.1) mg/dL Magnesium 1.6 L (1.8-2.4) mg/dL Total Bilirubin 0.5 (0.0-1.0) mg/dL AST 22 (15-37) U/L ALT 31 (12-78) U/L Alkaline Phosphatase 53 (46-116) U/L Troponin I 0.023 D (0.000-0.060) ng/mL Total Protein 6.6 (6.4-8.2) g/dL Albumin 2.8 L (3.4-5.0) g/dL Globulin 3.8 (2.2-4.2) g/dL Albumin/Globulin Ratio 0.7 L (0.8-2.0) TSH, Ultra Sensitive 2.461 D (0.358-3.740) uIU/mL Meds: Medications Discontinued Medications Generic Name Dose Route Start Last Admin Trade Name Freq PRN Reason Stop Dose Admin Amlodipine Besylate 2.5 mg 03/25/17 21:00 03/26/17 07:20 Norvasc PO 2.5 mg DAILY [facility] Administration Amlodipine Besylate 2.5 mg 03/26/17 11:00 03/26/17 11:15 Norvasc PO 03/26/17 11:01 2.5 mg ONETIME ONE Administration Aspirin 325 mg 03/25/17 08:00 03/26/17 07:49 Ecotrin PO 325 mg DAILY [facility] Administration Cyanocobalamin 2,500 mcg 03/25/17 08:00 03/26/17 07:50 Vitamin B12 PO 2,500 mcg DAILY [facility] Administration Flumazenil 0.2 mg 03/24/17 08:25 03/24/17 08:41 Romazicon IVPUSH 03/24/17 08:26 0.2 mg ONETIME PRN Administration Bradycardia Flumazenil 0.2 mg 03/24/17 08:54 03/24/17 08:56 Romazicon IVPUSH 03/24/17 08:55 0.2 mg ONETIME PRN Administration Bradycardia Sodium Chloride 500 mls @ 999 mls/hr 03/24/17 08:57 03/24/17 08:25 Normal Saline IV 03/24/17 09:27 999 mls/hr .BOLUS ONE Administration Potassium Chloride/Sodium Chloride 1,000 mls @ 125 mls/hr 03/24/17 09:45 05:18 Normal Saline With 40 Meq Kcl IV 250 mls/hr ASDIRECTED [facility] Administration Magnesium Sulfate 3 gm/ 1,006 mls @ 100 mls/hr 03/25/17 08:40 Potassium Chloride/Sodium IV Chloride ASDIRECTED [facility] Magnesium Sulfate 3 gm/ 1,006 mls @ 100 mls/hr 03/25/17 09:53 03/25/17 10:35 Potassium Chloride/Sodium IV 100 mls/hr Chloride ASDIRECTED PRN Administration low magnesium Insulin Aspart 10 unit 03/24/17 18:00 Novolog SUBCUT TID@0800,1200,1800 [facility] Insulin Aspart 0 unit 03/24/17 18:00 03/26/17 14:38 Novolog SUBCUT Not Given TIDMEALS [facility] Protocol Insulin Detemir 5 unit 03/24/17 20:00 03/26/17 07:36 Levemir SUBCUT 5 units BID [facility] Administration Levothyroxine Sodium 88 mcg 03/25/17 08:00 03/26/17 06:58 Synthroid PO 88 mcg ACBREAKFAST [facility] Administration Levothyroxine Sodium Confirm 03/25/17 07:34 03/25/17 10:23 Synthroid Administered 03/25/17 07:35 Not Given Dose 88 mcg .ROUTE .STK-MED ONE Losartan Potassium 50 mg 03/25/17 08:00 03/26/17 07:20 Cozaar PO 50 mg DAILY [facility] Administration Metformin HCl 1,000 mg 03/24/17 20:00 03/24/17 20:02 Glucophage PO 1,000 mg BID [facility] Administration Metformin HCl 1,000 mg 03/25/17 08:00 03/26/17 07:50 Glucophage PO 1,000 mg BIDMEALS [facility] Administration Omeprazole 40 mg 03/25/17 08:00 03/26/17 07:58 Omeprazole PO 40 mg DAILY [facility] Administration Pravastatin Sodium 20 mg 03/24/17 20:00 03/25/17 20:00 Pravachol PO 20 mg BEDTIME [facility] Administration Sodium Chloride 10 ml 03/24/17 08:24 03/24/17 08:15 Saline Flush FLUSH 10 ml ASDIRECTED PRN Administration Keep Vein Open Departure - Departure Time of Disposition: 13:00 Disposition: Admitted As Inpatient 65 Condition: Good Clinical Impression: Syncope and collapse, Bradycardia - Problem List Review Problem List Initiated/Reviewed/Updated: Yes - Assessment/Plan Plan: Patient to be placed on telemetry and monitor pulse and vitals as directed. We will adjust medications accordingly. D/c metoprolol, d/c clonazepam, dc duloxetine, and dc hydrochlorothiazide.
[2017-03-24] MEDS ORDERED: Non-Formulary Medication 1 Each PO SCH (17:00)
[2017-03-24] MEDS: Insulin Aspart 100 Units/ML 3 ML Pen SUBCUT SCH (17:26)
[2017-03-24] MEDS ORDERED: Insulin Aspart 100 Units/ML 3 ML Pen SUBCUT SCH (18:00)
[2017-03-24] MEDS ORDERED: Insulin Glargine,Human Rec. Analog 100 Units/ML 3 ML Pen SUBCUT SCH (20:00)
[2017-03-24] MEDS ORDERED: metFORMIN 1,000 MG Tab PO SCH (20:00)
[2017-03-24] MEDS: Insulin Detemir 100 Units/ML 3 ML Pen SUBCUT SCH (20:02)
[2017-03-24] MEDS: Pravastatin 20 MG Tab PO SCH (20:02)
[2017-03-25] MEDS: Sodium Chloride 0.9% with KCl 1,000 ML IV SCH (05:18)
[2017-03-25] MEDS ORDERED: Levothyroxine 88 MCG Tab ONE (07:34)
[2017-03-25] MEDS: Omeprazole 40 MG Cap.CR PO SCH (07:44)
[2017-03-25] MEDS: Levothyroxine 88 MCG Tab PO SCH (07:44)
[2017-03-25] MEDS ORDERED: Aspirin 81 MG Tab.EC PO SCH (08:00)
[2017-03-25] MEDS ORDERED: [UNRECOGNIZED DRUG - OTHER] SL SCH (08:00)
[2017-03-25] MEDS ORDERED: CYANOCOBALAMIN 2500 MCG SL SCH (08:00)
[2017-03-25] MEDS: metFORMIN 1,000 MG Tab PO SCH ×2 (08:03→17:46)
[2017-03-25] MEDS: Cyanocobalamin (Vitamin B12) 1,000 MCG Tab PO SCH (08:03)
[2017-03-25] MEDS: Aspirin 325 MG Tab.EC PO SCH (08:03)
[2017-03-25] MEDS: Insulin Detemir 100 Units/ML 3 ML Pen SUBCUT SCH ×2 (08:04→19:59)
[2017-03-25] MEDS: Losartan 50 MG Tab PO SCH (08:04)
--- NOTE | 2017-03-25 08:39 | PCM.PN ---
- General Info Date of Service: 03/25/17 Subjective Update: Patient states she is feeling much better and denies any dizziness and slept very well last night. She denies any complaints today. - Review of Systems General: Reports: No Symptoms HEENT: Reports: No Symptoms Pulmonary: Reports: No Symptoms Cardiovascular: Reports: No Symptoms Gastrointestinal: Reports: No Symptoms Genitourinary: Reports: No Symptoms Musculoskeletal: Reports: No Symptoms Skin: Reports: No Symptoms Neurological: Reports: No Symptoms Psychiatric: Reports: No Symptoms - Patient Data Vitals - Most Recent: Last Vital Signs Temp 35.8 C 03/24/17 20:14 Pulse 48 L 03/25/17 04:00 Resp 16 03/24/17 20:14 BP 158/73 H 03/25/17 08:04 Pulse Ox 96 03/24/17 20:14 Weight - Most Recent: 63 kg I&O - Last 24 Hours: Intake & Output 03/24/17 03/25/17 03/25/17 22:59 06:59 14:59 Intake Total 400 2200 Balance 400 2200 Lab Results Last 24 Hours: Laboratory Results - last 24 hr 03/24/17 03/24/17 03/25/17 Range/Units 15:32 19:01 07:10 WBC 6.1 (4.0-11.0) K/uL RBC 4.27 (3.80-5.80) M/uL Hgb 13.4 (11.5-16.5) g/dL Hct 37.7 (37.0-47.0) % MCV 88 (76-96) fL MCH 31.4 (27.0-32.0) pg MCHC 35.5 H (31.0-35.0) g/dL RDW 13.3 (11.0-16.0) % Plt Count 207 (150-500) K/uL MPV 10.7 H (6.0-10.0) fL Sodium (136-145) mmol/L Potassium (3.5-5.1) mmol/L Chloride (98-107) mmol/L Carbon Dioxide (21.0-32.0) mmol/L Anion Gap (5.0-15.0) mmol/L BUN (8-26) mg/dL Creatinine (0.55-1.02) mg/dL Est Cr Clr Drug Dosing Estimated GFR (MDRD) (>60) MLS/MIN BUN/Creatinine Ratio (6-25) Glucose (74-100) mg/dL POC Glucose 139 H 217 H (74-110) mg/dL Calcium (8.5-10.1) mg/dL Magnesium (1.8-2.4) mg/dL Total Bilirubin (0.0-1.0) mg/dL AST (15-37) U/L ALT (12-78) U/L Alkaline Phosphatase (46-116) U/L Total Protein (6.4-8.2) g/dL Albumin (3.4-5.0) g/dL Globulin (2.2-4.2) g/dL Albumin/Globulin Ratio (0.8-2.0) 03/25/ Range/Units 07:10 WBC (4.0-11.0) K/uL RBC (3.80-5.80) M/uL Hgb (11.5-16.5) g/dL Hct (37.0-47.0) % MCV (76-96) fL MCH (27.0-32.0) pg MCHC (31.0-35.0) g/dL RDW (11.0-16.0) % Plt Count (150-500) K/uL MPV (6.0-10.0) fL Sodium 142 (136-145) mmol/L Potassium 4.6 D (3.5-5.1) mmol/L Chloride 107 (98-107) mmol/L Carbon Dioxide 28.3 (21.0-32.0) mmol/L Anion Gap 11.3 (5.0-15.0) mmol/L BUN 8 D (8-26) mg/dL Creatinine 0.76 (0.55-1.02) mg/dL Est Cr Clr Drug Dosing TNP Estimated GFR (MDRD) > 60 (>60) MLS/MIN BUN/Creatinine Ratio 10.5 (6-25) Glucose 85 (74-100) mg/dL POC Glucose (74-110) mg/dL Calcium 8.6 (8.5-10.1) mg/dL Magnesium 1.7 L (1.8-2.4) mg/dL Total Bilirubin 0.4 (0.0-1.0) mg/dL AST 19 (15-37) U/L ALT 30 (12-78) U/L Alkaline Phosphatase 48 (46-116) U/L Total Protein 6.0 L (6.4-8.2) g/dL Albumin 2.8 L (3.4-5.0) g/dL Globulin 3.2 (2.2-4.2) g/dL Albumin/Globulin Ratio 0.9 (0.8-2.0) Med Orders - Current: Current Medications Aspirin (Ecotrin) 325 mg PO DAILY [facility] Last Admin: 03/25/17 08:03 Dose: 325 mg Cyanocobalamin (Vitamin B12) 2,500 mcg PO DAILY [facility] Last Admin: 03/25/17 08:03 Dose: 2,500 mcg Potassium Chloride/Sodium Chloride (Normal Saline With 40 Meq Kcl) 1,000 mls @ 125 mls/hr IV ASDIRECTED [facility] Last Admin: 03/25/17 05:18 Dose: 250 mls/hr Insulin Aspart (Novolog) 0 unit SUBCUT TIDMEALS [facility] PRN Reason: Protocol Last Admin: 03/24/17 17:26 Dose: Not Given Insulin Detemir (Levemir) 5 unit SUBCUT BID [facility] Last Admin: 03/25/17 08:04 Dose: 5 units Levothyroxine Sodium (Synthroid) 88 mcg PO ACBREAKFAST [facility] Last Admin: 03/25/17 07:44 Dose: 88 mcg Losartan Potassium (Cozaar) 50 mg PO DAILY [facility] Last Admin: 03/25/17 08:04 Dose: 50 mg Metformin HCl (Glucophage) 1,000 mg PO BIDMEALS [facility] Last Admin: 03/25/17 08:03 Dose: 1,000 mg Omeprazole (Omeprazole) 40 mg PO DAILY [facility] Last Admin: 03/25/17 07:44 Dose: 40 mg Pravastatin Sodium (Pravachol) 20 mg PO BEDTIME [facility] Last Admin: 03/24/17 20:02 Dose: 20 mg Sodium Chloride (Saline Flush) 10 ml FLUSH ASDIRECTED PRN PRN Reason: Keep Vein Open Last Admin: 03/24/17 08:15 Dose: 10 ml Discontinued Medications Flumazenil (Romazicon) 0.2 mg IVPUSH ONETIME PRN PRN Reason: Bradycardia Stop: 03/24/17 08:26 Last Admin: 03/24/17 08:41 Dose: 0.2 mg Flumazenil (Romazicon) 0.2 mg IVPUSH ONETIME PRN PRN Reason: Bradycardia Stop: 03/24/17 08:55 Last Admin: 03/24/17 08:56 Dose: 0.2 mg Sodium Chloride (Normal Saline) 500 mls @ 999 mls/hr IV .BOLUS ONE Stop: 03/24/17 09:27 Last Admin: 03/24/17 08:25 Dose: 999 mls/hr Insulin Aspart (Novolog) 10 unit SUBCUT TID@0800,1200,1800 [facility] Levothyroxine Sodium (Synthroid) Confirm Administered Dose 88 mcg .ROUTE .STK- MED ONE Stop: 03/25/17 07:35 Metformin HCl (Glucophage) 1,000 mg PO BID [facility] Last Admin: 03/24/17 20:02 Dose: 1,000 mg - Exam General: Alert, Oriented, Cooperative HEENT: Pupils Equal, Pupils Reactive, EOMI Neck: Supple Lungs: Clear to Auscultation, Normal Respiratory Effort Cardiovascular: Regular Rate, Regular Rhythm GI/Abdominal Exam: Normal Bowel Sounds, Soft, Non-Tender Extremities: Normal Inspection Skin: Warm, Dry, Intact Neurological: No New Focal Deficit Psy/Mental Status: Alert, Normal Affect, Normal Mood - Problem List Review Problem List Initiated/Reviewed/Updated: Yes - My Orders Last 24 Hours: My Active Orders 03/24/17 11:21 CULTURE MRSA SURVEY [RM] Routine 03/24/17 18:00 Insulin Aspart [NovoLOG] See Protocol SUBCUT TIDMEALS 03/24/17 20:00 Insulin Detemir [Levemir] 5 unit SUBCUT BID Pravastatin [Pravachol] 20 mg PO BEDTIME 03/25/17 08:00 Aspirin [Ecotrin] 325 mg PO DAILY Cyanocobalamin (Vitamin B12) [Vitamin B12] 2,500 mcg PO DAILY Levothyroxine [Synthroid] 88 mcg PO ACBREAKFAST Losartan [Cozaar] 50 mg PO DAILY Omeprazole 40 mg PO DAILY metFORMIN [Glucophage] 1,000 mg PO BIDMEALS 03/25/17 Breakfast Consistent Carbohydrate Diet [DIET] - Plan Plan:: Patient is doing well today. We are monitoring closely due to recent cessation of 3 medications (metoprolol, clonazepam, duloxetine). Patient to be monitored for increased BP, pulse and neurological changes. We will repeat labs in AM.
[2017-03-25] MEDS ORDERED: KCL IV SCH (08:40)
[2017-03-25] MEDS ORDERED: MAGNESIUM SULFATE IV SCH (08:40)
[2017-03-25] MEDS ORDERED: SODIUM CHLORIDE 0.9% IV SCH (08:40)
[2017-03-25] MEDS ORDERED: KCL IV PRN (09:53)
[2017-03-25] MEDS ORDERED: SODIUM CHLORIDE 0.9% IV PRN (09:53)
[2017-03-25] MEDS ORDERED: MAGNESIUM SULFATE IV PRN (09:53)
[2017-03-25] MEDS: Insulin Aspart 100 Units/ML 3 ML Pen SUBCUT SCH ×3 (10:23→17:37)
[2017-03-25] MEDS: Pravastatin 20 MG Tab PO SCH (20:00)
[2017-03-25] MEDS: amLODIPine 2.5 MG Tab PO SCH (22:25)
[2017-03-26] MEDS: Levothyroxine 88 MCG Tab PO SCH (06:58)
[2017-03-26] MEDS: Losartan 50 MG Tab PO SCH (07:20)
[2017-03-26] MEDS: amLODIPine 2.5 MG Tab PO SCH (07:20)
[2017-03-26] MEDS: Insulin Detemir 100 Units/ML 3 ML Pen SUBCUT SCH (07:36)
[2017-03-26] MEDS: Aspirin 325 MG Tab.EC PO SCH (07:49)
[2017-03-26] MEDS: Cyanocobalamin (Vitamin B12) 1,000 MCG Tab PO SCH (07:50)
[2017-03-26] MEDS: metFORMIN 1,000 MG Tab PO SCH (07:50)
[2017-03-26] MEDS: Omeprazole 40 MG Cap.CR PO SCH (07:58)
--- NOTE | 2017-03-26 10:16 | PCM.PN ---
- General Info Date of Service: 03/26/17 Functional Status: Reports: Tolerating Diet, Ambulating - Review of Systems General: Reports: No Symptoms HEENT: Reports: No Symptoms Pulmonary: Reports: No Symptoms Cardiovascular: Reports: No Symptoms Gastrointestinal: Reports: No Symptoms Genitourinary: Reports: No Symptoms Musculoskeletal: Reports: No Symptoms Skin: Reports: No Symptoms Neurological: Reports: No Symptoms Psychiatric: Reports: No Symptoms - Patient Data Vitals - Most Recent: Last Vital Signs Temp 36.3 C 03/26/17 08:00 Pulse 55 L 03/26/17 08:00 Resp 16 03/25/17 20:00 BP 178/91 H 03/26/17 09:35 Pulse Ox 98 03/26/17 08:00 Weight - Most Recent: 63 kg I&O - Last 24 Hours: Intake & Output 03/25/17 03/26/17 03/26/17 22:59 06:59 14:59 Intake Total 2864 820 Balance 2864 820 Lab Results Last 24 Hours: Laboratory Results - last 24 hr 03/25/17 03/25/17 03/26/17 Range/Units 10:45 18:47 07:30 WBC 6.9 (4.0-11.0) K/uL RBC 4.40 (3.80-5.80) M/uL Hgb 13.8 (11.5-16.5) g/dL Hct 39.4 (37.0-47.0) % MCV 90 (76-96) fL MCH 31.4 (27.0-32.0) pg MCHC 35.0 (31.0-35.0) g/dL RDW 13.8 (11.0-16.0) % Plt Count 232 (150-500) K/uL MPV 10.6 H (6.0-10.0) fL Neut % (Auto) 54.7 (45.0-70.0) % Lymph % (Auto) 31.6 (20.0-40.0) % [place] % (Auto) 11.8 H (3.0-10.0) % Eos % (Auto) 1.5 (1.0-5.0) % Baso % (Auto) 0.4 (0.0-0.5) % Neut # (Auto) 3.77 (2.00-7.50) K/uL Lymph # (Auto) 2.18 (1.50-4.00) K/uL [place] # (Auto) 0.81 H (0.20-0.80) K/uL Eos # (Auto) 0.10 (0.04-0.40) K/uL Baso # (Auto) 0.03 (0.02-0.10) K/uL Sodium (136-145) mmol/L Potassium (3.5-5.1) mmol/L Chloride (98-107) mmol/L Carbon Dioxide (21.0-32.0) mmol/L Anion Gap (5.0-15.0) mmol/L BUN (8-26) mg/dL Creatinine (0.55-1.02) mg/dL Est Cr Clr Drug Dosing mL/min Estimated GFR (MDRD) (>60) MLS/MIN BUN/Creatinine Ratio (6-25) Glucose (74-100) mg/dL POC Glucose 101 157 H (74-110) mg/dL Calcium (8.5-10.1) mg/dL Total Bilirubin (0.0-1.0) mg/dL AST (15-37) U/L ALT (12-78) U/L Alkaline Phosphatase (46-116) U/L Total Protein (6.4-8.2) g/dL Albumin (3.4-5.0) g/dL Globulin (2.2-4.2) g/dL Albumin/Globulin Ratio (0.8-2.0) // Range/Units 07:30 WBC (4.0-11.0) K/uL RBC (3.80-5.80) M/uL Hgb (11.5-16.5) g/dL Hct (37.0-47.0) % MCV (76-96) fL MCH (27.0-32.0) pg MCHC (31.0-35.0) g/dL RDW (11.0-16.0) % Plt Count (150-500) K/uL MPV (6.0-10.0) fL Neut % (Auto) (45.0-70.0) % Lymph % (Auto) (20.0-40.0) % [place] % (Auto) (3.0-10.0) % Eos % (Auto) (1.0-5.0) % Baso % (Auto) (0.0-0.5) % Neut # (Auto) (2.00-7.50) K/uL Lymph # (Auto) (1.50-4.00) K/uL [place] # (Auto) (0.20-0.80) K/uL Eos # (Auto) (0.04-0.40) K/uL Baso # (Auto) (0.02-0.10) K/uL Sodium 140 (136-145) mmol/L Potassium 4.5 (3.5-5.1) mmol/L Chloride 103 (98-107) mmol/L Carbon Dioxide 28.3 (21.0-32.0) mmol/L Anion Gap 13.2 (5.0-15.0) mmol/L BUN 6 L D (8-26) mg/dL Creatinine 0.72 (0.55-1.02) mg/dL Est Cr Clr Drug Dosing 62.70 mL/min Estimated GFR (MDRD) > 60 (>60) MLS/MIN BUN/Creatinine Ratio 8.3 (6-25) Glucose 118 H D (74-100) mg/dL POC Glucose (74-110) mg/dL Calcium 9.3 (8.5-10.1) mg/dL Total Bilirubin 0.3 (0.0-1.0) mg/dL AST 20 (15-37) U/L ALT 33 (12-78) U/L Alkaline Phosphatase 55 (46-116) U/L Total Protein 6.9 (6.4-8.2) g/dL Albumin 3.4 (3.4-5.0) g/dL Globulin 3.5 (2.2-4.2) g/dL Albumin/Globulin Ratio 1.0 (0.8-2.0) Gerry Results Last 24 Hours: Microbiology 03/24/17 11:21 MRSA Surveillance Culture - Final Nares, Right NO MRSA ISOLATED Med Orders - Current: Current Medications Amlodipine Besylate (Norvasc) 2.5 mg PO DAILY [facility] Last Admin: 03/26/17 07:20 Dose: 2.5 mg Aspirin (Ecotrin) 325 mg PO DAILY [facility] Last Admin: 03/26/17 07:49 Dose: 325 mg Cyanocobalamin (Vitamin B12) 2,500 mcg PO DAILY [facility] Last Admin: 03/26/17 07:50 Dose: 2,500 mcg Insulin Aspart (Novolog) 0 unit SUBCUT TIDMEALS [facility] PRN Reason: Protocol Last Admin: 03/25/17 17:37 Dose: Not Given Insulin Detemir (Levemir) 5 unit SUBCUT BID [facility] Last Admin: 03/26/17 07:36 Dose: 5 units Levothyroxine Sodium (Synthroid) 88 mcg PO ACBREAKFAST [facility] Last Admin: 03/26/17 06:58 Dose: 88 mcg Losartan Potassium (Cozaar) 50 mg PO DAILY [facility] Last Admin: 03/26/17 07:20 Dose: 50 mg Metformin HCl (Glucophage) 1,000 mg PO BIDMEALS [facility] Last Admin: 03/26/17 07:50 Dose: 1,000 mg Omeprazole (Omeprazole) 40 mg PO DAILY [facility] Last Admin: 03/26/17 07:58 Dose: 40 mg Pravastatin Sodium (Pravachol) 20 mg PO BEDTIME [facility] Last Admin: 03/25/17 20:00 Dose: 20 mg Sodium Chloride (Saline Flush) 10 ml FLUSH ASDIRECTED PRN PRN Reason: Keep Vein Open Last Admin: 03/24/17 08:15 Dose: 10 ml Discontinued Medications Flumazenil (Romazicon) 0.2 mg IVPUSH ONETIME PRN PRN Reason: Bradycardia Stop: 03/24/17 08:26 Last Admin: 03/24/17 08:41 Dose: 0.2 mg Flumazenil (Romazicon) 0.2 mg IVPUSH ONETIME PRN PRN Reason: Bradycardia Stop: 03/24/17 08:55 Last Admin: 03/24/17 08:56 Dose: 0.2 mg Sodium Chloride (Normal Saline) 500 mls @ 999 mls/hr IV .BOLUS ONE Stop: 03/24/17 09:27 Last Admin: 03/24/17 08:25 Dose: 999 mls/hr Potassium Chloride/Sodium Chloride (Normal Saline With 40 Meq Kcl) 1,000 mls @ 125 mls/hr IV ASDIRECTED [facility] Last Admin: 03/25/17 05:18 Dose: 250 mls/hr Magnesium Sulfate 3 gm/Potassium Chloride/Sodium Chloride 1,006 mls @ 100 mls/ hr IV ASDIRECTED [facility] Magnesium Sulfate 3 gm/Potassium Chloride/Sodium Chloride 1,006 mls @ 100 mls/ hr IV ASDIRECTED PRN PRN Reason: low magnesium Last Admin: 03/25/17 10:35 Dose: 100 mls/hr Insulin Aspart (Novolog) 10 unit SUBCUT TID@0800,1200,1800 [facility] Levothyroxine Sodium (Synthroid) Confirm Administered Dose 88 mcg .ROUTE .STK- MED ONE Stop: 03/25/17 07:35 Last Admin: 03/25/17 10:23 Dose: Not Given Metformin HCl (Glucophage) 1,000 mg PO BID [facility] Last Admin: 03/24/17 20:02 Dose: 1,000 mg - Exam General: Alert, Oriented HEENT: Pupils Equal, Pupils Reactive, EOMI, Mucous Membr. Moist/[place] Lungs: Clear to Auscultation, Normal Respiratory Effort Cardiovascular: Regular Rate, Regular Rhythm GI/Abdominal Exam: Normal Bowel Sounds Back Exam: Normal Inspection Extremities: Normal Inspection - Problem List Review Problem List Initiated/Reviewed/Updated: Yes - My Orders Last 24 Hours: My Active Orders 03/25/17 21:00 amLODIPine [Norvasc] 2.5 mg PO DAILY - Plan Plan:: Patient is doing well today. We are monitoring closely due to recent cessation of 3 medications (metoprolol, clonazepam, duloxetine). Patient to be monitored for increased BP, pulse and neurological changes. We will repeat labs in AM. 03/26/17 We have started Amlodipine 2.5mg and will monitor for BP control. Continue losartan. Recheck BP as directed.
[2017-03-26] MEDS ORDERED: amLODIPine 2.5 MG Tab PO ONE (11:00)
[2017-03-26 12:58] VITALS: BP 165/83
--- NOTE | 2017-03-26 14:26 | PCM.DCSUM1 ---
Discharge Summary - Discharge Data Discharge Date: 03/26/17 Discharge Disposition: Home, Self-Care 01 Condition: Good - Patient Instructions Diet: Heart Healthy Diet Activity: As Tolerated Driving: Do Not Drive Showering/Bathing: May Shower - Discharge Plan Prescriptions/Med Rec: Insulin Aspart [NovoLOG] 3 unit SUBCUT TIDMEALS #1 pen amLODIPine [Norvasc] 5 mg PO DAILY #60 tablet Home Medications: Home Meds Cyanocobalamin (Vitamin B-12) [Vitamin B-12] 2,500 mcg SL DAILY 10/24/15 [ History] Levothyroxine [Synthroid] 88 mcg PO DAILY tablet 03/15/17 [Rx] Losartan [Cozaar] 50 mg PO DAILY tablet 03/15/17 [Rx] Omeprazole 40 mg PO DAILY cap.cr 03/15/17 [Rx] Pravastatin [Pravachol] 20 mg PO BEDTIME tablet 03/15/17 [Rx] metFORMIN [Glucophage] 1,000 mg PO BID tablet 03/15/17 [Rx] Cyanocobalamin (Vitamin B12) [Vitamin B12] 2,500 mcg PO DAILY tablet 03/26/17 [ Rx] Insulin Aspart [NovoLOG] 3 unit SUBCUT TIDMEALS #1 pen 03/26/17 [Rx] Insulin Glargine,Hum.Rec.Anlog [Lantus Solostar] 9 unit SQ BEDTIME #0 03/26/17 [Rx] amLODIPine [Norvasc] 5 mg PO DAILY #60 tablet 03/26/17 [Rx] Patient Handouts: Insulin Treatment for Diabetes, Bradycardia, Hypoglycemia, Insulin Detemir injection, Amlodipine tablets, Insulin Pumps, Syncope, Easy-to- Read Forms: ED Department Discharge Referrals: Rodri Motley MD [Primary Care Provider] - - Discharge Summary/Plan Comment Discharge Summary/Plan Comment: Patient to fully d/c metoprolol, d/c hydrochlorothiazide, d/c duloxetine, d/c clonazepam. We will add amlodipine 5mg daily and monitor BP and pulse and close f/u in clinic. Return to ER as needed if any concerns or issues develop. Counseled on plan of care and f/u and patient and family agree with plan. Updated [facility] pharmacy. - General Info Date of Service: 03/26/17 Functional Status: Reports: Pain Controlled, Tolerating Diet, Ambulating, Urinating - Review of Systems General: Reports: No Symptoms HEENT: Reports: No Symptoms Pulmonary: Reports: No Symptoms Cardiovascular: Reports: No Symptoms Gastrointestinal: Reports: No Symptoms Genitourinary: Reports: No Symptoms Musculoskeletal: Reports: No Symptoms Skin: Reports: No Symptoms Neurological: Reports: No Symptoms Psychiatric: Reports: No Symptoms - Patient Data Vitals - Most Recent: Last Vital Signs Temp 36.7 C 03/26/17 12:57 Pulse 73 03/26/17 12:57 Resp 16 03/25/17 20:00 BP 165/83 H 03/26/17 12:57 Pulse Ox 95 03/26/17 12:57 Weight - Most Recent: 63 kg I&O - Last 24 hours: Intake & Output 03/25/17 03/26/17 03/26/17 22:59 06:59 14:59 Intake Total 2864 820 Balance 2864 820 Lab Results - Last 24 hrs: Laboratory Results - last 24 hr 03/25/17 03/25/17 03/26/17 Range/Units 10:45 18:47 07:30 WBC 6.9 (4.0-11.0) K/uL RBC 4.40 (3.80-5.80) M/uL Hgb 13.8 (11.5-16.5) g/dL Hct 39.4 (37.0-47.0) % MCV 90 (76-96) fL MCH 31.4 (27.0-32.0) pg MCHC 35.0 (31.0-35.0) g/dL RDW 13.8 (11.0-16.0) % Plt Count 232 (150-500) K/uL MPV 10.6 H (6.0-10.0) fL Neut % (Auto) 54.7 (45.0-70.0) % Lymph % (Auto) 31.6 (20.0-40.0) % [place] % (Auto) 11.8 H (3.0-10.0) % Eos % (Auto) 1.5 (1.0-5.0) % Baso % (Auto) 0.4 (0.0-0.5) % Neut # (Auto) 3.77 (2.00-7.50) K/uL Lymph # (Auto) 2.18 (1.50-4.00) K/uL [place] # (Auto) 0.81 H (0.20-0.80) K/uL Eos # (Auto) 0.10 (0.04-0.40) K/uL Baso # (Auto) 0.03 (0.02-0.10) K/uL Sodium (136-145) mmol/L Potassium (3.5-5.1) mmol/L Chloride (98-107) mmol/L Carbon Dioxide (21.0-32.0) mmol/L Anion Gap (5.0-15.0) mmol/L BUN (8-26) mg/dL Creatinine (0.55-1.02) mg/dL Est Cr Clr Drug Dosing mL/min Estimated GFR (MDRD) (>60) MLS/MIN BUN/Creatinine Ratio (6-25) Glucose (74-100) mg/dL POC Glucose 101 157 H (74-110) mg/dL Calcium (8.5-10.1) mg/dL Total Bilirubin (0.0-1.0) mg/dL AST (15-37) U/L ALT (12-78) U/L Alkaline Phosphatase (46-116) U/L Total Protein (6.4-8.2) g/dL Albumin (3.4-5.0) g/dL Globulin (2.2-4.2) g/dL Albumin/Globulin Ratio (0.8-2.0) 07/26/17 Range/Units 07:30 WBC (4.0-11.0) K/uL RBC (3.80-5.80) M/uL Hgb (11.5-16.5) g/dL Hct (37.0-47.0) % MCV (76-96) fL MCH (27.0-32.0) pg MCHC (31.0-35.0) g/dL RDW (11.0-16.0) % Plt Count (150-500) K/uL MPV (6.0-10.0) fL Neut % (Auto) (45.0-70.0) % Lymph % (Auto) (20.0-40.0) % [place] % (Auto) (3.0-10.0) % Eos % (Auto) (1.0-5.0) % Baso % (Auto) (0.0-0.5) % Neut # (Auto) (2.00-7.50) K/uL Lymph # (Auto) (1.50-4.00) K/uL [place] # (Auto) (0.20-0.80) K/uL Eos # (Auto) (0.04-0.40) K/uL Baso # (Auto) (0.02-0.10) K/uL Sodium 140 (136-145) mmol/L Potassium 4.5 (3.5-5.1) mmol/L Chloride 103 (98-107) mmol/L Carbon Dioxide 28.3 (21.0-32.0) mmol/L Anion Gap 13.2 (5.0-15.0) mmol/L BUN 6 L D (8-26) mg/dL Creatinine 0.72 (0.55-1.02) mg/dL Est Cr Clr Drug Dosing 62.70 mL/min Estimated GFR (MDRD) > 60 (>60) MLS/MIN BUN/Creatinine Ratio 8.3 (6-25) Glucose 118 H D (74-100) mg/dL POC Glucose (74-110) mg/dL Calcium 9.3 (8.5-10.1) mg/dL Total Bilirubin 0.3 (0.0-1.0) mg/dL AST 20 (15-37) U/L ALT 33 (12-78) U/L Alkaline Phosphatase 55 (46-116) U/L Total Protein 6.9 (6.4-8.2) g/dL Albumin 3.4 (3.4-5.0) g/dL Globulin 3.5 (2.2-4.2) g/dL Albumin/Globulin Ratio 1.0 (0.8-2.0) Med Orders - Current: Current Medications Amlodipine Besylate (Norvasc) 2.5 mg PO DAILY [facility] Last Admin: 03/26/17 07:20 Dose: 2.5 mg Aspirin (Ecotrin) 325 mg PO DAILY [facility] Last Admin: 03/26/17 07:49 Dose: 325 mg Cyanocobalamin (Vitamin B12) 2,500 mcg PO DAILY [facility] Last Admin: 03/26/17 07:50 Dose: 2,500 mcg Insulin Aspart (Novolog) 0 unit SUBCUT TIDMEALS [facility] PRN Reason: Protocol Last Admin: 03/25/17 17:37 Dose: Not Given Insulin Detemir (Levemir) 5 unit SUBCUT BID [facility] Last Admin: 03/26/17 07:36 Dose: 5 units Levothyroxine Sodium (Synthroid) 88 mcg PO ACBREAKFAST [facility] Last Admin: 03/26/17 06:58 Dose: 88 mcg Losartan Potassium (Cozaar) 50 mg PO DAILY [facility] Last Admin: 03/26/17 07:20 Dose: 50 mg Metformin HCl (Glucophage) 1,000 mg PO BIDMEALS [facility] Last Admin: 03/26/17 07:50 Dose: 1,000 mg Omeprazole (Omeprazole) 40 mg PO DAILY [facility] Last Admin: 03/26/17 07:58 Dose: 40 mg Pravastatin Sodium (Pravachol) 20 mg PO BEDTIME [facility] Last Admin: 03/25/17 20:00 Dose: 20 mg Sodium Chloride (Saline Flush) 10 ml FLUSH ASDIRECTED PRN PRN Reason: Keep Vein Open Last Admin: 03/24/17 08:15 Dose: 10 ml Discontinued Medications Amlodipine Besylate (Norvasc) 2.5 mg PO ONETIME ONE Stop: 03/26/17 11:01 Last Admin: 03/26/17 11:15 Dose: 2.5 mg Flumazenil (Romazicon) 0.2 mg IVPUSH ONETIME PRN PRN Reason: Bradycardia Stop: 03/24/17 08:26 Last Admin: 03/24/17 08:41 Dose: 0.2 mg Flumazenil (Romazicon) 0.2 mg IVPUSH ONETIME PRN PRN Reason: Bradycardia Stop: 03/24/17 08:55 Last Admin: 03/24/17 08:56 Dose: 0.2 mg Sodium Chloride (Normal Saline) 500 mls @ 999 mls/hr IV .BOLUS ONE Stop: 03/24/17 09:27 Last Admin: 03/24/17 08:25 Dose: 999 mls/hr Potassium Chloride/Sodium Chloride (Normal Saline With 40 Meq Kcl) 1,000 mls @ 125 mls/hr IV ASDIRECTED [facility] Last Admin: 03/25/17 05:18 Dose: 250 mls/hr Magnesium Sulfate 3 gm/Potassium Chloride/Sodium Chloride 1,006 mls @ 100 mls/ hr IV ASDIRECTED [facility] Magnesium Sulfate 3 gm/Potassium Chloride/Sodium Chloride 1,006 mls @ 100 mls/ hr IV ASDIRECTED PRN PRN Reason: low magnesium Last Admin: 03/25/17 10:35 Dose: 100 mls/hr Insulin Aspart (Novolog) 10 unit SUBCUT TID@0800,1200,1800 [facility] Levothyroxine Sodium (Synthroid) Confirm Administered Dose 88 mcg .ROUTE .STK- MED ONE Stop: 03/25/17 07:35 Last Admin: 03/25/17 10:23 Dose: Not Given Metformin HCl (Glucophage) 1,000 mg PO BID [facility] Last Admin: 03/24/17 20:02 Dose: 1,000 mg - Exam General: Reports: Alert, Oriented, Cooperative, No Acute Distress HEENT: Reports: Pupils Equal, Pupils Reactive, EOMI, Mucous Membr. Moist/[place] Neck: Reports: Supple Lungs: Reports: Clear to Auscultation, Normal Respiratory Effort Cardiovascular: Reports: Regular Rate, Regular Rhythm GI/Abdominal Exam: Normal Bowel Sounds, Soft, Non-Tender *Q Meaningful Use (DIS) - VTE *Q VTE Criteria *Q: - Stroke *Q Stroke Criteria *Q: - AMI *Q AMI Criteria *Q:
[2017-03-26] MEDS: Insulin Aspart 100 Units/ML 3 ML Pen SUBCUT SCH ×2 (14:36→14:38)
== END 2017-03-26 15:58 | disposition home or self-care (01) | DRG 312 ==
LOC: LB.ED 08:02 → UNDOADMIN 10:00 → LB.MS 10:00
PROVIDERS: ADMIT Family Medicine; ATTEND Family Medicine
DX: R55 Syncope and collapse (principal); I10 Essential (primary) hypertension; Z86.73 Personal history of transient ischemic attack (TIA), and cerebral infarction without residual deficits; E11.9 Type 2 diabetes mellitus without complications; Z79.4 Long term (current) use of insulin; Z79.82 Long term (current) use of aspirin; Z88.5 Allergy status to narcotic agent; Z88.8 Allergy status to other drugs, medicaments and biological substances; Z91.013 Allergy to seafood; R00.1 Bradycardia, unspecified
CPT/HCPCS: 36415; 80053; 83735; 84443; 84484; 85025; 93005; 96374; 99285; J3480; J7040; J7050; 82962; 85027; A9270-GY; J3475; J3490

== ENCOUNTER 2018-02-05 13:10 | Emergency (ER) | payer MEDICARE, BC ==
[2018-02-05] MEDS ORDERED: cloNIDine 0.1 MG Tab PO ONE (13:38)
[2018-02-05] MEDS ORDERED: cloNIDine 0.1 MG Tab ONE (13:43)
[2018-02-05] MEDS ORDERED: LORazepam 0.5 MG Tab PO ONE (14:47)
[2018-02-05] MEDS ORDERED: LORazepam 0.5 MG Tab ONE (14:53)
--- NOTE | 2018-02-05 16:30 | EDM.PDOC ---
ED HPI GENERAL MEDICAL PROBLEM - General Chief Complaint: Cardiovascular Problem Stated Complaint: elevated BP and headache Time Seen by Provider: 02/05/18 13:22 Source of Information: Reports: Patient, Family, RN History Limitations: Reports: No Limitations - History of Present Illness INITIAL COMMENTS - FREE TEXT/NARRATIVE: 67 yr female presents with headache, elevated BP and epistaxis on/off the last couple of days. She did take extra dose of Losartan this am as ordered per Dr Yusuf at her last clinic visit. Daughter is with her today and worried with these bloody nose. Pt took Losartan this am and BP still elevated. Consult Dr Hawthorne with this pt and recommends to use Clonidine 0.1 mg PO X1 for BP and discharge to home with increase of Losartan. Effects of Losartan will take a few days to stabilize for pt, but continue with 100mg daily until return visit with PCP. Ativan 0.5 mg PO given and BP return to normal level. Pt states she feels so much improved and would like to have Ativan to take at home. Recommend F/U with PCP to check on this. recommend use of saline mist and vaseline to nasal mucosa for the nose bleed. Pt discharged to care of cousin and pt feeling better. - Related Data Allergies Allergy/AdvReac Type Severity Reaction Status Date / Time codeine Allergy Nausea Verified 03/24/17 10:24 iodine Allergy Rash Verified 03/24/17 10:24 lisinopril Allergy Cough Verified 03/24/17 10:24 shellfish derived Allergy Rash Verified 03/24/17 10:24 Home Meds: Home Meds Cyanocobalamin (Vitamin B-12) [Vitamin B-12] 2,500 mcg SL DAILY 10/24/15 [ History] Levothyroxine [Synthroid] 88 mcg PO DAILY tablet 03/15/17 [Rx] Losartan [Cozaar] 50 mg PO DAILY tablet 03/15/17 [Rx] Omeprazole 40 mg PO DAILY cap.cr 03/15/17 [Rx] Pravastatin [Pravachol] 20 mg PO BEDTIME tablet 03/15/17 [Rx] metFORMIN [Glucophage] 1,000 mg PO BID tablet 03/15/17 [Rx] Cyanocobalamin (Vitamin B12) [Vitamin B12] 2,500 mcg PO DAILY tablet 03/26/17 [ Rx] Insulin Aspart [NovoLOG] 3 unit SUBCUT TIDMEALS #1 pen 03/26/17 [Rx] Insulin Glargine,Hum.Rec.Anlog [Lantus Solostar] 9 unit SQ BEDTIME #0 03/26/17 [ Rx] amLODIPine [Norvasc] 5 mg PO DAILY #60 tablet 03/26/17 [Rx] Past Medical History HEENT History: Reports: Other (See Below) Other HEENT History: Wears glasses. Cardiovascular History: Reports: Hypertension Other Cardiovascular History: Hx SVT Gastrointestinal History: Reports: None [employer]ENT History: Reports: Neurological History: Reports: CVA, TIA Other Neuro History: CVA 2014 Endocrine/Metabolic History: Reports: Diabetes, Type II - Infectious Disease History Infectious Disease History: Reports: Chicken Pox, Measles, Mumps - Past Surgical History Cardiovascular Surgical History: Reports: None GI Surgical History: Reports: Appendectomy, Cholecystectomy Neurological Surgical History: Reports: None Social & Family History - Family History Family Medical History: Noncontributory - Caffeine Use Caffeine Use: Reports: None Other Caffeine Use: unknown ED ROS GENERAL - Review of Systems Review Of Systems: See Below Constitutional: Reports: No Symptoms HEENT: Reports: Other (nose bleeds in last couple days, none now) Respiratory: Reports: No Symptoms Cardiovascular: Reports: Blood Pressure Problem. Denies: Chest Pain, Dyspnea on Exertion Endocrine: Reports: No Symptoms GI/Abdominal: Reports: No Symptoms : Reports: No Symptoms Musculoskeletal: Reports: No Symptoms Skin: Reports: No Symptoms Neurological: Reports: Headache. Denies: Confusion, Dizziness Psychiatric: Reports: Anxiety ED EXAM, GENERAL - Physical Exam Exam: See Below Exam Limited By: No Limitations General Appearance: Alert, No Apparent Distress, Anxious Ears: Hearing Grossly Normal Nose: Normal Inspection, Normal Mucosa Throat/Mouth: Normal Lips, Normal Voice, No Airway Compromise Head: Atraumatic, Normocephalic Neck: Normal Inspection, Supple, Non-Tender Respiratory/Chest: No Respiratory Distress, Lungs Clear, Normal Breath Sounds Cardiovascular: Regular Rate, Rhythm, No Edema GI/Abdominal: Normal Bowel Sounds, Soft, Non-Tender (Female) Exam: Deferred Rectal (Female) Exam: Deferred Back Exam: Normal Inspection, Full Range of Motion Extremities: Normal Inspection Neurological: Alert, Oriented, Normal Cognition Psychiatric: Normal Affect, Normal Mood Skin Exam: Warm, Dry, Normal Color Course - Vital Signs Last Recorded V/S: Last Vital Signs Temp Pulse Resp BP 190/99 H 02/05/18 13:42 Pulse Ox - Orders/Labs/Meds Labs: Laboratory Tests 02/05/18 02/05/18 Range/Units 13:35 13:35 WBC 9.5 (4.0-11.0) K/uL RBC 4.40 (3.80-5.80) M/uL Hgb 13.8 (11.5-16.5) g/dL Hct 40.6 (37.0-47.0) % MCV 92 (76-96) fL MCH 31.4 (27.0-32.0) pg MCHC 34.0 (31.0-35.0) g/dL RDW 13.0 (11.0-16.0) % Plt Count 220 (150-500) K/uL MPV 11.3 H (6.0-10.0) fL Neut % (Auto) 46.5 (45.0-70.0) % Lymph % (Auto) 32.9 (20.0-40.0) % [place] % (Auto) 7.8 (3.0-10.0) % Eos % (Auto) 12.4 H (1.0-5.0) % Baso % (Auto) 0.4 (0.0-0.5) % Neut # (Auto) 4.43 (2.00-7.50) K/uL Lymph # (Auto) 3.14 (1.50-4.00) K/uL [place] # (Auto) 0.74 (0.20-0.80) K/uL Eos # (Auto) 1.18 H (0.04-0.40) K/uL Baso # (Auto) 0.04 (0.02-0.10) K/uL Sodium 142 (136-145) mmol/L Potassium 3.4 L D (3.5-5.1) mmol/L Chloride 105 (98-107) mmol/L Carbon Dioxide 28.5 (21.0-32.0) mmol/L Anion Gap 11.9 (5.0-15.0) mmol/L BUN 17 (8-26) mg/dL Creatinine 0.75 (0.55-1.02) mg/dL Est Cr Clr Drug Dosing TNP Estimated GFR (MDRD) > 60 (>60) MLS/MIN BUN/Creatinine Ratio 22.7 (6-25) Glucose 98 D (74-100) mg/dL Calcium 9.2 (8.5-10.1) mg/dL Total Bilirubin 0.4 (0.0-1.0) mg/dL AST 24 (15-37) U/L ALT 39 (12-78) U/L Alkaline Phosphatase 79 (46-116) U/L Total Protein 7.1 (6.4-8.2) g/dL Albumin 3.7 (3.4-5.0) g/dL Globulin 3.4 (2.2-4.2) g/dL Albumin/Globulin Ratio 1.1 (0.8-2.0) Meds: Medications Discontinued Medications Generic Name Dose Route Start Last Admin Trade Name Akila PRN Reason Stop Dose Admin Clonidine HCl 0.1 mg 02/05/18 13:38 02/05/18 13:42 Catapres PO 02/05/18 13:39 0.1 mg ONETIME ONE Administration Clonidine HCl Confirm 02/05/18 13:43 02/05/18 13:42 Catapres Administered 02/05/18 13:44 Not Given Dose 0.1 mg .ROUTE .STK-MED ONE Lorazepam 0.5 mg 02/05/18 14:47 02/05/18 14:52 Ativan PO 02/05/18 14:48 0.5 mg ONETIME ONE Administration Lorazepam Confirm 02/05/18 14:53 02/05/18 14:53 Ativan Administered 02/05/18 14:54 Not Given Dose 0.5 mg .ROUTE .STK-MED ONE - Re-Assessments/Exams Free Text/Narrative Re-Assessment/Exam: 02/05/18 16:33 Continue with Losartan 100mg PO daily and return to PCP for follow-up as scheduled. Recommend saline mist or vaseline for nasal mucosa. Rest and relax and adequate fluids. Departure - Departure Time of Disposition: 15:55 Disposition: Home, Self-Care 01 Condition: Good Clinical Impression: Hypertension Referrals: PCP,None [Primary Care Provider] - Forms: ED Department Discharge Additional Instructions: Increase Losarten to 100mg daily. Follow up with Dr Pineda on 02/24/18 as already scheduled.
[2018-02-05 16:33] VITALS: BP 159/65
== END 2018-02-05 15:55 | disposition home or self-care (01) ==
LOC: LB.ED 13:10
DX: I10 Essential (primary) hypertension (principal); E11.9 Type 2 diabetes mellitus without complications; Z88.5 Allergy status to narcotic agent; Z88.8 Allergy status to other drugs, medicaments and biological substances; Z91.013 Allergy to seafood; Z79.899 Other long term (current) drug therapy; Z79.4 Long term (current) use of insulin
CPT/HCPCS: 36415; 80053; 85025; 99283; 99284; A9270-GY

== ENCOUNTER 2021-10-06 11:05 | Emergency (ER) | payer MEDICARE, BC ==
[2021-10-06] MEDS ORDERED: Ondansetron 4 MG/2 ML SDV IVPUSH PRN (11:43)
[2021-10-06] MEDS ORDERED: Sodium Chloride 0.9% 10 ML Syringe FLUSH PRN (11:43)
[2021-10-06] MEDS ORDERED: Sodium Chloride 0.9% 1,000 ML IV SCH ×2 (11:45→13:30)
[2021-10-06] MEDS ORDERED: Non-Formulary Medication 1 Each IV SCH (12:00)
[2021-10-06] MEDS ORDERED: cefTRIAXone 1 GM in Sodium Chloride 0.9% 50 ML IV ONE (13:23)
[2021-10-06] MEDS ORDERED: Azithromycin 500 MG in Sodium Chloride 0.9% 250 ML IV ONE (13:24)
[2021-10-06] MEDS ORDERED: D5 1/2 NS w/ 20 mEq/L KCl 1,000 ML ONE (15:58)
[2021-10-06] MEDS: D5 1/2 NS w/ 20 mEq/L KCl 1,000 ML IV SCH (16:53)
[2021-10-06] MEDS ORDERED: Loperamide 2 MG Cap PO PRN (18:28)
[2021-10-06] MEDS ORDERED: Loperamide 2 MG Cap ONE (18:31)
[2021-10-06] MEDS ORDERED: 50% Dextrose in Water 50 ML Syringe IVPUSH PRN (21:48)
[2021-10-06] MEDS ORDERED: Glucagon,Human Recombinant 1 MG Vial IM PRN (21:48)
[2021-10-06] MEDS ORDERED: Insulin Glargine,Human Rec. Analog 100 Units/ML 3 ML Pen SUBCUT ONE (22:30)
[2021-10-07] MEDS: D5 1/2 NS w/ 20 mEq/L KCl 1,000 ML IV SCH
[2021-10-07 08:11] VITALS: BP 100/64; PULSE 62
[2021-10-07] MEDS ORDERED: Insulin Glargine,Human Rec. Analog 100 Units/ML 3 ML Pen SUBCUT ONE (22:30)
== END 2021-10-07 10:50 | disposition home or self-care (01) ==
LOC: LB.ED 11:05
DX: U07.1 COVID-19 (principal); I95.9 Hypotension, unspecified; E78.00 Pure hypercholesterolemia, unspecified; I10 Essential (primary) hypertension; E11.9 Type 2 diabetes mellitus without complications; Z86.73 Personal history of transient ischemic attack (TIA), and cerebral infarction without residual deficits; Z88.5 Allergy status to narcotic agent; Z91.013 Allergy to seafood; Z88.8 Allergy status to other drugs, medicaments and biological substances; Z91.041 Radiographic dye allergy status; Z79.899 Other long term (current) drug therapy; Z79.82 Long term (current) use of aspirin; Z79.4 Long term (current) use of insulin
CPT/HCPCS: 36415; 71045; 80048; 81001; 82947; 85025; 87086; 96365; 96366; 96367; 96375; 99284; A9270; J0456; J0696; J1815; J2405; J3480; J7030; J7050

== ENCOUNTER 2024-10-13 16:03 | Emergency (ER) | payer MEDICARE, BC ==
[2024-10-13 16:44] LABS: BASOPHILS ABSOLUTE AUTO 0.02 K/uL (0.02-0.10); BASOPHILS PERCENT AUTO 0.2 % (0.0-0.5); EOSINOPHILS ABSOLUTE AUTO 0.01 K/uL (0.04-0.40); EOSINOPHILS PERCENT AUTO 0.1 % (1.0-5.0); HEMATOCRIT 41.3 % (37.0-47.0); HEMOGLOBIN 14.1 g/dL (11.5-16.5); LYMPHOCYTES ABSOLUTE AUTO 1.15 K/uL (1.50-4.00); LYMPHOCYTES PERCENT AUTO 10.5 % (20.0-40.0); MEAN CORPUSCULAR HEMOGLOBIN 32.6 pg (27.0-32.0); MEAN CORPUSCULAR HGB CONC 34.1 g/dL (31.0-35.0); MEAN CORPUSCULAR VOLUME 95 fL (76-96); MEAN PLATELET VOLUME 11.2 fL (6.0-10.0); MONOCYTES ABSOLUTE AUTO 0.76 K/uL (0.20-0.80); MONOCYTES PERCENT AUTO 6.9 % (3.0-10.0); NEUTROPHILS ABSOLUTE AUTO 9.01 K/uL (2.00-7.50); NEUTROPHILS PERCENT AUTO 82.3 % (45.0-70.0); PLATELET COUNT,PLT 204 K/uL (150-500); RED BLOOD CELL COUNT 4.33 M/uL (3.80-5.80); RED CELL DISTRIBUTION WIDTH 13.2 % (11.0-16.0)
[2024-10-13 16:57] LABS: ANION GAP 12.7 mmol/L (5.0-15.0); BUN/CREATININE RATIO 14.4 (6-25); CALCIUM 9.3 mg/dL (8.5-10.1); CARBON DIOXIDE,CO2 25.9 mmol/L (21.0-32.0); CREATININE 1.67 mg/dL (0.55-1.02); EST CRCL DRUG DOSING (CG) 24.08 mL/min; POTASSIUM,K 4.6 mmol/L (3.5-5.1)
[2024-10-13 17:06] LABS: TROPONIN I HIGH SENSITIVITY 9.2 pg/ml (<=60.4)
[2024-10-13 17:17] LABS: INFLUENZA A NAA NEGATIVE (NEGATIVE); INFLUENZA B NAA NEGATIVE (NEGATIVE); RESPIRATORY SYNCYTIAL VIR NAA NEGATIVE (NEGATIVE)
[2024-10-13 17:20] LABS: CORONAVIRUS COVID-19 NAA NEGATIVE (NEGATIVE)
[2024-10-13 19:07] VITALS: BP 92/63; PULSE 56
== END 2024-10-13 18:30 | disposition home or self-care (01) ==
LOC: LB.ED 16:03
DX: I82.B22 Chronic embolism and thrombosis of left subclavian vein (principal); R00.1 Bradycardia, unspecified; R25.1 Tremor, unspecified; I48.91 Unspecified atrial fibrillation; I10 Essential (primary) hypertension; E11.9 Type 2 diabetes mellitus without complications; Z86.73 Personal history of transient ischemic attack (TIA), and cerebral infarction without residual deficits; Z90.49 Acquired absence of other specified parts of digestive tract; Z88.5 Allergy status to narcotic agent; Z88.8 Allergy status to other drugs, medicaments and biological substances; Z91.013 Allergy to seafood; Z91.041 Radiographic dye allergy status; Z79.01 Long term (current) use of anticoagulants; Z79.4 Long term (current) use of insulin; Z79.890 Hormone replacement therapy; Z79.899 Other long term (current) drug therapy
CPT/HCPCS: 0241U; 36415; 80048; 84484; 85025; 86140; 99284

== ENCOUNTER 2024-11-01 10:24 | Emergency (ER) | payer MEDICARE, BC ==
[2024-11-01] MEDS: Sodium Chloride 0.9% 1,000 ML IV SCH (11:00)
[2024-11-01 11:06] LABS: BASOPHILS ABSOLUTE AUTO 0.02 K/uL (0.02-0.10); BASOPHILS PERCENT AUTO 0.2 % (0.0-0.5); EOSINOPHILS ABSOLUTE AUTO 0.18 K/uL (0.04-0.40); EOSINOPHILS PERCENT AUTO 1.5 % (1.0-5.0); HEMATOCRIT 42.8 % (37.0-47.0); HEMOGLOBIN 14.7 g/dL (11.5-16.5); LYMPHOCYTES ABSOLUTE AUTO 4.52 K/uL (1.50-4.00); LYMPHOCYTES PERCENT AUTO 37.7 % (20.0-40.0); MEAN CORPUSCULAR HEMOGLOBIN 31.7 pg (27.0-32.0); MEAN CORPUSCULAR HGB CONC 34.3 g/dL (31.0-35.0); MEAN CORPUSCULAR VOLUME 92 fL (76-96); MEAN PLATELET VOLUME 11.1 fL (6.0-10.0); MONOCYTES ABSOLUTE AUTO 0.94 K/uL (0.20-0.80); MONOCYTES PERCENT AUTO 7.8 % (3.0-10.0); NEUTROPHILS ABSOLUTE AUTO 6.34 K/uL (2.00-7.50); NEUTROPHILS PERCENT AUTO 52.8 % (45.0-70.0); PLATELET COUNT,PLT 275 K/uL (150-500); RED BLOOD CELL COUNT 4.63 M/uL (3.80-5.80); RED CELL DISTRIBUTION WIDTH 13.1 % (11.0-16.0)
[2024-11-01] MEDS: Ondansetron 4 MG/2 ML SDV IVPUSH ONE (11:23)
[2024-11-01 11:24] LABS: ANION GAP 15.6 mmol/L (5.0-15.0); BUN/CREATININE RATIO 16.5 (6-25); CALCIUM 9.3 mg/dL (8.5-10.1); CREATININE 1.76 mg/dL (0.55-1.02); EST CRCL DRUG DOSING (CG) 22.34 mL/min; POTASSIUM,K 3.6 mmol/L (3.5-5.1); TROPONIN I HIGH SENSITIVITY 9.8 pg/ml (<=60.4)
[2024-11-01 15:15] VITALS: BP 106/52; PULSE 57
[2024-11-01] MEDS: Sodium Chloride 0.9% 500 ML IV ONE (15:51)
== END 2024-11-01 14:15 | disposition home or self-care (01) ==
LOC: LB.ED 10:24
DX: R55 Syncope and collapse (principal); R00.1 Bradycardia, unspecified; I10 Essential (primary) hypertension; E11.9 Type 2 diabetes mellitus without complications; Z90.49 Acquired absence of other specified parts of digestive tract; Z79.01 Long term (current) use of anticoagulants; Z79.899 Other long term (current) drug therapy; Z79.890 Hormone replacement therapy; Z79.4 Long term (current) use of insulin; Z88.5 Allergy status to narcotic agent; Z91.048 Other nonmedicinal substance allergy status; Z91.013 Allergy to seafood; Z88.8 Allergy status to other drugs, medicaments and biological substances
CPT/HCPCS: 36415; 74019; 80048; 82947; 84484; 85025; 93005; 96361; 96374; 99284-25; J2405; J7030

== ENCOUNTER 2025-08-10 11:45 | Emergency (ER) | payer MEDICARE, BC ==
[2025-08-10] MEDS ORDERED: Sodium Chloride 0.9% 10 ML Syringe FLUSH PRN (12:13)
[2025-08-10 12:37] LABS: MEAN PLATELET VOLUME 10.8 fL (6.0-10.0); PLATELET COUNT,PLT 213.0 K/uL (150-500); RED BLOOD CELL COUNT 4.78 M/uL (3.80-5.80); RED CELL DISTRIBUTION WIDTH 13.0 % (11.0-16.0); WHITE BLOOD CELL COUNT,WBC 10.5 K/uL (4.0-11.0)
[2025-08-10 13:05] LABS: BLOOD UREA NITROGEN,BUN 19.0 mg/dL (8-26); CARBON DIOXIDE,CO2 27.6 mmol/L (21.0-32.0); CHLORIDE,CL 104.0 mmol/L (98-107); CREATININE 1.28 mg/dL (0.55-1.02); EST CRCL DRUG DOSING (CG) 29.57 mL/min; ESTIMATED GFR 43.0 mL/min (>60); GLUCOSE RANDOM 153.0 mg/dL (74-100); PHOSPHORUS 2.6 mg/dL (2.5-4.9); POTASSIUM,K 4.0 mmol/L (3.5-5.1); PRO B-TYPE NATRIUR PEPT,BNPPRO 64.0 pg/mL (0-450); SODIUM,NA 142.0 mmol/L (136-145); TROPONIN I HIGH SENSITIVITY 10.0 pg/ml (<=60.4)
[2025-08-10] MEDS: Lactated Ringers 1,000 ML IV SCH (13:19)
[2025-08-10 14:12] LABS: APPEARANCE,URINE CLEAR (CLEAR); GLUCOSE,URINE NEGATIVE (NEGATIVE); OCCULT BLOOD,URINE NEGATIVE (NEGATIVE)
[2025-08-10] MEDS: Albuterol 0.083% 2.5 MG/3 ML Neb Soln NEB ONE (16:05)
[2025-08-10 17:00] VITALS: BP 168/76; PULSE 80
== END 2025-08-10 17:00 | disposition home or self-care (01) ==
LOC: LB.ED 11:45
DX: J21.9 Acute bronchiolitis, unspecified (principal); I10 Essential (primary) hypertension; E78.00 Pure hypercholesterolemia, unspecified; E11.9 Type 2 diabetes mellitus without complications; Z86.73 Personal history of transient ischemic attack (TIA), and cerebral infarction without residual deficits; Z79.899 Other long term (current) drug therapy; Z79.01 Long term (current) use of anticoagulants; Z88.5 Allergy status to narcotic agent; Z88.8 Allergy status to other drugs, medicaments and biological substances; Z91.013 Allergy to seafood; Z91.041 Radiographic dye allergy status
CPT/HCPCS: 36415; 71045; 80048; 81003; 82947; 83735; 83880; 84100; 84443; 84484; 85027; 87428-QW; 93005; 94640; 96360; 96361; 99285-25; A9270-GY; J7120